=== PATIENT | female | born 1945 | race Caucasian/White ===

== ENCOUNTER 2018-02-24 10:03 | Observation (INO) | payer MEDICARE, OTHER ==
[~2018-02-24] VITALS: Ht 157.5 cm; Wt 94.0 kg
[~2018-02-24 10:03] MED LIST: ACTOS45 MG PO; ALLER-EASE180 MG PO; ASPIR 8181 MG PO; CAL MAG ZINC +1 EACH PO; COUMADIN4 MG PO; GLIPIZIDE ER10 MG PO; GLIPIZIDE XL10 MG PO; GLIPIZIDE10 MG PO; GLUCOPHAGE500 MG PO; GLUCOSAMINE &1 EAC1 PO; LANTUS SOL100 UNIT/1 INJ; LANTUS SOL100 UNIT/1 SUB-Q; LISINOPRIL-HCT1 EACH PO; MEDROL4 MG PO; OCTREOTIDE100 MCG/2 IJ; PIOGLITAZONE HC15 MG PO; PRAVACHOL40 MG PO; SOMATULINE120 MG/0.5 SUB-Q; TRAMADOL HCL50 MG PO; TYLENOL EXTRA500 MG PO; VITAMIN D5000 UNIT PO; WARFARIN SODIUM5 MG PO
--- NOTE | 2018-02-24 15:24 | NUR ---
SPOKE WITH DR. LEDBETTER VIA TELEPHONE TO SONA KATZ. CLARRIFIED THAT SHE DID NOT WANT TO REPEAT THE LACTIC ACID LAB, AND ACKNOWLEGED THAT SHE WAS AWARE OF PT'S ELEVATED LACTIV ACID LEVEL OF 3.5. ALSO CLARRIFIED ORDERS FOR LR 1,000 ML BOLUS THAT WAS ORDERED TWICE, THEN LR AT 100 CC/HR. DR. LEDBETTER ORDERED THAT ONE LITER LR BOLUS BE GIVEN, NOT TWO LITERS.
[2018-02-24] MEDS ORDERED: SOMATULINE120 MG/0.5 SUB-Q (17:24)
--- NOTE | 2018-02-24 17:52 | NUR ---
PATIENT SITTING UP IN BED WITH EYES CLOSED. PATIENT'S DAUGHTER IN ROOM. CALL BUTTON IN REACH. NO NEEDS AT THIS TIME.
--- NOTE | 2018-02-24 17:54 | NUR ---
PATIENT ADMITTED FROM EMERGENCY DEPARTMENT WITH DEHYDRATION, HYPOMAGNESIA, UPPER RESPIRATORY VIRUS. PATIENT IS INDEPENDENT AT HOME, PATIENT REQUIRES 1 PERSON STANDBY ASSIST DUE TO COMPLAINTS OF DIZZINESS AND EPISODE OF HYPOTENSION EARLIER. PATIENT AMBULATES TO RESTROOM. PATIENT ALSO WITH ALL OVER WEAKNESS THE LAST WEEK. PATIENT WITH HISTORY OF LIVER/COLON TUMOR REMOVAL/CANCER. PATIENT REPORTS INJECTION, NOT CHEMO GIVEN X [facility], WITH NEXT INJECTION DUE TOMORROW 02/25/18. PATIENT HAS CHRONIC ABDOMINAL PAIN WITH INCREASE IN PAIN DUE TO COUGHING PER PATIENT. PATIENT ALSO REPORTS CHRONIC DIARRHEA. PATIENT VOIDED 300ML AT TIME OF ADMITTANCE. PATIENT RECEIVED 2LITER LR AND NOW ON CONTINUOUS LR AT 100ML/HR. PATIENT ALSO RECEIVING IV REPLACEMENT MAGNESIUM DUE TO MAGNESIUM AT 1.5. PATIENT ALSO RECEIVING SCHEDULED MEDICATIONS OF ROBITUSSIN, FLONASE, PSEUDOPHEDRINE. PATIENT WITH DECREASE APPETITE AND ONLY COMPLETED 25% OF DINNER. PATIENT ALSO WITH DM TYPE II AND SLIDING INSULIN SCALE. UNKNOWN PLAN AT THIS TIME.
--- NOTE | 2018-02-24 18:20 | NUR ---
PATIENT WITH DECREASE APPETITE, FINISHED 25% OF DINNER.
--- NOTE | 2018-02-24 19:00 | NUR ---
BEDSIDE REPORT RECEIVED FROM RN LAURO. PT AWAKE, ON RA, LYING IN BED, LR INFUSING WNL RIGHT AC. CALL LIGHT IN REACH, TRAY TABLE REMOVED FROM ROOM. NO REQUESTS AT THIS TIME. FAMILY IN ROOM.
--- NOTE | 2018-02-24 21:30 | NUR ---
PT AWAKE, LYING IN BED, SON IN ROOM. PRN TYLENOL ADMINISTERED FOR CHRONIC ABD PAIN. PT COUGHING, CLEAR PRODUCTIVE THIN SPUTUM. BOWEL TONES HYPOACTIVE X 4, ABD SOFT, PAIN IN LUQ. HR IRREGULAR RHYTHM, ON TELE 6. LUNGS CLEAR BILATEALLY UPPER LOBES, FINE CRACKLES NOTED BILATERALLY LOWER LOBES. CBG 150. SBA TO RESTROOM FOR VOID AND LOOSE BM. PRN COUGH MEDICATION ADMINISTERED. PT DENIES NAUSEA. CALL LIGHT IN REACH, LIGHTS OFF IN ROOM.
--- NOTE | 2018-02-24 22:16 | EKG ---
[facility] [address] [facility] [place], [place] [address] Signed Atrial fibrillation Low voltage QRS Cannot rule out Anterior infarct (cited on or before 22-NOV-2016) Abnormal ECG When compared with ECG of 22-NOV-2016 15:49, Atrial fibrillation has replaced Sinus rhythm Confirmed by DANITAZ LEDBETTER MD ([id number]) on 02/24/2018 10:15:50 PM Electronically Signed By: DANITZA LEDBETTER MD 02/24/18 2216 PATIENT NAME: CLOVER MARTINEZ Electrocardiogram DATE OF : 41 PHYSICIAN: DANITZA LEDBETTER MD REPORT #: [id number] REPORT IS CONFIDENTIAL AND NOT TO BE RELEASED WITHOUT AUTHORIZATION
--- NOTE | 2018-02-25 00:13 | NUR ---
CHECKED ON PT, APPEARS TO BE SLEEPING, EYES CLOSED, VISIBLE CHEST RISE. IVF INFUSING.
--- NOTE | 2018-02-25 01:08 | NUR ---
DISTAL OCCLUSION WITH IV PUMP, PT AWAKE, SBA TO RESTROOM FOR LOOSE BM AND 400 ML VOID, SBA BACK TO BED. IVF INFUSING WNL. CALL LIGHT IN REACH, LIGHTS OFF IN ROOM. HR 79-85 ON TELE 6.
--- NOTE | 2018-02-25 02:44 | NUR ---
IV PUMP CONTINUES TO ALARM, IV NOT PATENT, LINE D/C'D, NEW IV STARTED IN RIGHT WRIST WNL PT CYNTHIA. WELL. LUNGS CLEAR IN UPPER LOBES WITH FINE CRACKLES BILATERALLY LOWER EXTREMITIES. OCCASIONAL COUGH, DRY AT THIS TIME. HR IRREGULAR, HR 74-78. BOWEL TONES ACTIVE X 4, WARM PACK ON ABD. ABD SOFT, PT DENIES NAUSEA. WILL CONTINUE TO MONITOR. CALL LIGHT IN REACH, LIGHTS OFF IN ROOM.
--- NOTE | 2018-02-25 04:41 | NUR ---
CHECKED ON PT, PT AWAKE, ON IPAD, SBA TO RESTROOM FOR VOID, BACK TO BED. DENIES ANY PAIN AT THIS TIME. IVF INFUSING WNL. CALL LIGHT IN REACH, NO ADDL REQUESTS, PT DRINKING WATER.
--- NOTE | 2018-02-25 06:08 | NUR ---
PHONE CALL FROM PT'S DAUGHTER STEW, UPDATED ON PT'S NIGHT.
--- NOTE | 2018-02-25 06:19 | NUR ---
HR IRREGULAR, ON TELE 6. PRODUCTIVE COUGH CLEAR THIN SPUTUM, PRN COUGH MEDICATIONS. NEW IV SITE RIGHT WRIST, IVF INFUSING WNL. CHRONIC PAIN CONTROLLED WITH PRN TYLENOL, HEAT TO ABD. BOWEL TONES ACTIVE X 4, ABD SOFT. DENIES NAUSEA. SBA TO RESTROOM, LOOSE STOOL, QS VOIDS.
--- NOTE | 2018-02-25 06:34 | NUR ---
IN PT ROOM, PT COUGHING, PRN COUGH MEDICATION ADMINISTERED AT THIS TIME. NO ADDL REQUESTS. CALL LIGHT IN REACH, IVF INFUSING.
--- NOTE | 2018-02-25 07:20 | NUR ---
PT IN BED, AWAKE, ALERT. COUGHING, HAD PRN TESSLON RADHA AT 0633. 22 G IV TO RW WNL, LR INFUSING AT 100CC/HR. PERSONAL SUPPLIES AND CALL BUTTON IN REACH.
--- NOTE | 2018-02-25 08:00 | NUR ---
PATIENT UP TO BATHROOM AND BACK TO CHAIR WITH STAND BY ASSIST. PATIENT STATES THAT SHE WOULD LIKE TO SHOWER AFTER BREAKFAST. HANDS AND FACE WASHED. CALL BUTTON IN REACH. BREAKFAST TRAY SET UP. NO OTHER NEEDS AT THIS TIME.
--- NOTE | 2018-02-25 08:13 | NUR ---
RT in room with pt giving education on cough and respiratory care.
--- NOTE | 2018-02-25 09:00 | NUR ---
PATIENT UP TO SHOWER WITH STAND BY ASSIST.LINENS CHANGED. ORAL CARE DONE.
--- NOTE | 2018-02-25 10:00 | NUR ---
PATIENT BACK TO BED WITH WARM BLANKET. CALL BUTTON IN REACH. NO OTHER NEEDS AT THIS TIME. IN ROOM TO SEE PATIENT.
--- NOTE | 2018-02-25 10:27 | NUR ---
PT RESTING IN BED. DENIES NEEDS AT THIS TIME. CALL LIGHT WITHIN REACH.
[2018-02-25] MEDS ORDERED: ALPHAGAN P5 M1 OU (11:26)
[2018-02-25] MEDS ORDERED: COLCRYS0.6 MG PO (11:27)
[2018-02-25] MEDS ORDERED: TIMOLOL MALEATE5 M2 OU (11:29)
--- NOTE | 2018-02-25 11:31 | NUR ---
PT RESTING IN BED WITH DAUGHTER AT BEDSIDE. STATED, "IM FEELING MUCH BETTER." BLOOD SUGAR CHECKED. NO INSULIN NEEDED.
[2018-02-25] MEDS ORDERED: FLONASE ALLERG9.9 ML NAS (11:38)
--- NOTE | 2018-02-25 11:39 | NUR ---
MED REC COMPLETE
--- NOTE | 2018-02-25 12:57 | NUR ---
PT UP AND AMBULATING IN HALLWAY. TOLERATED ACTIVITY WELL. BACK IN ROOM WITH DAUGHTER.
[2018-02-25] MEDS ORDERED: NYSTATIN15 GM TOP (13:24)
--- NOTE | 2018-02-25 13:36 | NUR ---
IN ROOM TO DISCUSS DISCHARGE. PT VERBALIZED UNDERSTANDING.
--- NOTE | 2018-02-25 13:55 | NUR ---
IN ROOM TO GIVE DISCHARGE INSTRUCTIONS ON MEDICATION, FOLLOW-UP, ACTIVITY, DIET, AND WHEN TO CONTACT THE MD. PT VERBALIZED UNDERSTANDING. WILL DISCHARGE HOME WITH DAUGHTER.
[2018-03-25] MEDS ORDERED: MAGNESIUM CITR100 MG PO (11:17)
== END 2018-02-25 14:05 | disposition home or self-care (01) ==
LOC: ED 10:03 → MS 10:06
PROVIDERS: ADMIT Internal Medicine
DX: E86.0 Dehydration (principal); K52.9 Noninfective gastroenteritis and colitis, unspecified; J01.10 Acute frontal sinusitis, unspecified; B97.89 Other viral agents as the cause of diseases classified elsewhere; I48.91 Unspecified atrial fibrillation; C7A.00 Malignant carcinoid tumor of unspecified site; C7B.02 Secondary carcinoid tumors of liver; E11.9 Type 2 diabetes mellitus without complications; I10 Essential (primary) hypertension; M10.9 Gout, unspecified; E78.00 Pure hypercholesterolemia, unspecified; Z86.711 Personal history of pulmonary embolism; Z79.84 Long term (current) use of oral hypoglycemic drugs; Z79.82 Long term (current) use of aspirin; Z79.899 Other long term (current) drug therapy; Z88.5 Allergy status to narcotic agent; Z88.2 Allergy status to sulfonamides
CPT/HCPCS: 36415; 51701; 71046; 80053; 81001; 83605; 83690; 83735; 84484; 85025; 85379; 93005; 93010; 93306; 94640; 94667; 96361; 96365; 96372; 96376; 99285; G0378; J1650; J3475; J7120

== ENCOUNTER 2020-01-09 17:26 | Emergency (ER) | payer MEDICARE, OTHER ==
[~2020-01-09] VITALS: Ht 157.5 cm; Wt 89.4 kg
[~2020-01-09 17:26] MED LIST changes: +ALPHAGAN P5 M1 OU; +COLCRYS0.6 MG PO; +CORICIDIN COLD1 EACH PO; +FLONASE ALLERG9.9 ML NAS; +MAGNESIUM CITR100 MG PO; +MECLIZINE HCL25 MG PO; +NYSTATIN15 GM TOP; +TIMOLOL MALEATE5 M2 OU; +TRANSDERM-SCOP1 EACH TD; +TURMERIC COMPL1 EACH PO; +ZITHROMAX250 MG PO
--- OUTSIDE RECORDS SUMMARY | 2020-01-09 17:28 | XMS ---
PreManage Notification: CLOVER MARTINEZ Security Manager Ct Events No recent Security Events currently on file CRITERIA MET - Group Notification CARE PROVIDERS There are no care providers on record at this time. Zainab has no Care Guidelines for this patient. [place] VISIT COUNT (12 MO.) [address] [facility] [place] 1 RODGER Quiñonez TOTAL 2 NOTE: Visits indicate total known visits. ED/[facility] VISIT TRACKING (12 MO.) 01/09/2020 17:26 RODGER Quiñonez [place] TYPE: Emergency COMPLAINT: - FELL, LACERATION HEAD 11/27/2019 15:[address] [facility] [place] TYPE: Emergency DIAGNOSES: - Benign paroxysmal vertigo, unspecified ear - Emesis - Dizziness INPATIENT VISIT TRACKING (12 MO.) No inpatient visits to display in this time frame [id number]
== END 2020-01-09 19:29 | disposition home or self-care (01) ==
LOC: ED 17:26
DX: S06.9X0A Unspecified intracranial injury without loss of consciousness, initial encounter (principal); S01.81XA Laceration without foreign body of other part of head, initial encounter; E11.9 Type 2 diabetes mellitus without complications; I10 Essential (primary) hypertension; E78.00 Pure hypercholesterolemia, unspecified; Z79.899 Other long term (current) drug therapy; X58.XXXA Exposure to other specified factors, initial encounter
CPT/HCPCS: 12013; 70450; 90471; 90715; 99283-25

== ENCOUNTER 2021-11-14 11:10 | Inpatient (IN) | payer MEDICARE, OTHER ==
[~2021-11-14] VITALS: Ht 157.5 cm; Wt 92.0 kg
--- NOTE | 2021-11-14 00:14 | NUR ---
PT IS RESTING WITH EYES CLOSED RR IS EVEN AND UNLABORED. CALL LIGHT IS CLOSE.
[~2021-11-14 11:10] MED LIST changes: +METOPROLOL SUCC25 MG PO; +WARFARIN SODIUM4 MG PO
--- OUTSIDE RECORDS SUMMARY | 2021-11-14 11:18 | XMS ---
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 [place] VISIT COUNT (12 MO.) 1 RODGER Quiñonez TOTAL 1 NOTE: Visits indicate total known visits. ED/[facility] VISIT TRACKING (12 MO.) 11/14/2021 11:11 [facility] [place] TYPE: Emergency COMPLAINT: - DIZZINESS, NAUSEA, SOB, UNABLE TO WALK FAR INPATIENT VISIT TRACKING (12 MO.) No inpatient visits to display in this time frame [id number]
[2021-11-14] MEDS ORDERED: AMIODARONE HCL200 MG PO (11:32)
[2021-11-14] MEDS ORDERED: ELIQUIS5 MG PO (11:33)
[2021-11-14] MEDS ORDERED: EUTHYROX112 MCG PO (11:33)
[2021-11-14] MEDS ORDERED: LOSARTAN-HCTZ1 EAC1 PO (11:33)
--- NOTE | 2021-11-14 15:15 | NUR ---
PT ARRIVED TO FLOOR AT THIS TIME. PT ABLE TO PULLED OVER FROM STRETCHER TO BED WITH STAFF. PT DOES HAVE RASH/ SHINGLES NOTED ON HER RIGHT SIDE- UNDER PTS LEFT ARMPIT HAS SMALL NOTED RASH. THIS RN PROVIDED PT WITH TYLENOL FOR PAIN
--- NOTE | 2021-11-14 18:30 | NUR ---
THIS RN IN PTS ROOM TO CHECK ON PT. PT STATES THAT SHE IS DOING WELL AND ABLE TO EAT SOME FOOD. PT STATES THAT HER PAIN IS BETTER AFTER TYLENOL. NO OTHER NEEDS AT THIS TIME
--- NOTE | 2021-11-14 19:30 | NUR ---
RECEIVED REPORT, PT IS AWAKE IN BED. HER DAUGHTER JUST LEFT FOR THE NIGHT AND SHE DENIES NEEDS. CALL LIGHT IS CLOSE.
--- NOTE | 2021-11-14 22:09 | NUR ---
IN ROOM TO ADMINISTER MEDICATION AND ASSESS PT. BG CHECK AND DOES NOT REQUIRE INSULIN. 1PA TO RESTROOM AND BACK TO BED. PT HAD ANOTHER LOOSE BM AND URINE THAT MISSED THE HAT ALONG WITH 100MLS IN THE HAT. PT DENIES PAIN AT THIS TIME. NO SOB OR NAUSEA. VS WNL. PT PROVIDED FRESH ICEWATER AND DENIES FURTHER NEEDS. CALL LIGHT IS CLOSE.
--- NOTE | 2021-11-15 01:57 | NUR ---
PT IS RESTING WITH EYES CLOSED, RR IS EVEN AND UNLABORED. CALL LIGHT IS CLOSE AND IV IS INFUSING FINE.
--- NOTE | 2021-11-15 02:45 | NUR ---
WOKE PT TO TAKE VITAL SIGNS AND ASSISTED PT TO RESTROOM AND BACK TO BED. SHE REPORTS RASHES ON BACK ITCHING/BURNING BUT DENIES PAIN. NO BLISTERS OR OPEN AREAS OF SKIN. PT VOIDED 300MLS. SHE REPORTS SOME ABD TENDERNESS WITH PRESSURE WHICH SHE STATES IS HER BASELINE. PT ALSO HAS INTERMITENT EXP WHEEZES WHILE SLEEPING BUT WAS NOT AUSCULTATED WHILE AWAKE. SHE REPORTS SHE DOES THIS AT BASELINE WELL. PT HAS SOME SOB WITH EXERTION AT BASELINE. PT DENIES FURTHER NEEDS AT THIS TIME. CALL LIGHT IS CLOSE.
--- NOTE | 2021-11-15 04:52 | NUR ---
PT IS RESTING WITH EYES CLOSED, RR IS EVEN AND UNLABORED. CALL LIGHT IS CLOSE AND IV IS INFUSING FINE.
--- NOTE | 2021-11-15 06:35 | NUR ---
IN ROOM TO HELP PT TO RESTROOM AND BACK TO BED. PT REPORTS HEADACHE 7/10 ADMINISTERED TYLENOL AND THYROID MEDICATION. PT'S COUGH IS MORE PRODUCTIVE THIS MORNING. IV IS INFUSING FINE AND PT DENIES FURTHER NEEDS. CALL LIGHT IS CLOSE.
--- NOTE | 2021-11-15 08:18 | NUR ---
PT IN BED STATING THAT SHE SLEPT OK, BG WAS TAKEN, AND PT UP TO CHAIR IN PREPARATION FOR BREAKFAST. NO FURTHER NEEDS AT THIS TIME.
--- NOTE | 2021-11-15 09:23 | NUR ---
VS WNL. PT UP IN CHAIR EATING BREAKFAST. NO NEEDS AT THIS TIME.
--- NOTE | 2021-11-15 10:21 | NUR ---
Patient sitting up in chair eating breakfast, no distress. IV site patent, fluids running. Patient reports her rash on back has intermittent nerve pain, tolerable at this time. Rash is on right upper back; red, open to room air, no notable blistering at this time. No current needs. Personal supplies and call light within reach.
--- NOTE | 2021-11-15 10:40 | NUR ---
Spoke with Daniella, she states she lives in a 1 story home. Her son lives with her. Multiple family members assist her. She drives and does house hold chores and shopping. No DME. Pt does have a productive cough throughout our visit. States she was very dehydrated as she could not t or drink. Plans on dc to home with son when she is cleared medically She states her spouse lives in [facility].
[2021-11-15] MEDS ORDERED: [UNRECOGNIZED DRUG - OTHER] PO (13:06)
--- NOTE | 2021-11-15 13:06 | NUR ---
MED REC COMPLETE
--- NOTE | 2021-11-15 15:34 | NUR ---
Assisted patient to restroom then back to bed. Patient reports mild pain to right upper back, tylenol in use. IV site patent. Patient denies needs. Patient's daughter at bedside. No current needs.
--- NOTE | 2021-11-15 18:36 | EKG ---
[facility] [address] [facility] [place] [address] Signed Atrial fibrillation Low voltage QRS Septal infarct (cited on or before 22-NOV-2016) Abnormal ECG When compared with ECG of 24-FEB-2018 10:37, Current undetermined rhythm precludes rhythm comparison, needs review Questionable change in initial forces of Anterior leads Nonspecific T wave abnormality now evident in Lateral leads Confirmed by POLI YOST DO ([id number]) on 11/15/2021 6:36:25 PM Electronically Signed By: POLI YOST DO 11/15/21 1836 PATIENT NAME: CLOVER MARTINEZ Electrocardiogram DATE OF : 41 PHYSICIAN: POLI YOST DO REPORT #: [id number] REPORT IS CONFIDENTIAL AND NOT TO BE RELEASED WITHOUT AUTHORIZATION
--- NOTE | 2021-11-15 18:36 | EKG ---
[facility] [address] [facility] [place], [place] [address] Signed Atrial fibrillation Low voltage QRS Nonspecific ST and T wave abnormality Abnormal ECG When compared with ECG of 14-NOV-2021 11:58, (Unconfirmed) Previous ECG has undetermined rhythm, needs review Confirmed by POLI YOST DO ([id number]) on 11/15/2021 6:36:32 PM Electronically Signed By: POLI YOST DO 11/15/21 1836 PATIENT NAME: CLOVER MARTINEZ Electrocardiogram DATE OF : 41 PHYSICIAN: POLI YOST DO REPORT #: [id number] REPORT IS CONFIDENTIAL AND NOT TO BE RELEASED WITHOUT AUTHORIZATION
--- NOTE | 2021-11-15 19:27 | NUR ---
RECEIVED REPORT, PT IS UP TO THE RESTROOM WITH DAUGHTER AT THIS TIME. THEY DENY NEEDS AT THIS TIME.
--- NOTE | 2021-11-15 21:50 | NUR ---
IN ROOM TO ASSESS PT AND ADMINISTER MEDICATIONS. ASSISTED PT TO RESTROOM AND BACK TO BED. ALSO ADMINISTERED TYLENOL FOR HEADACHE 01/13. PT REPORTS WEAKNESS IS DECREASING AND THAT SHE DID WELL WITH PT TODAY. RASHES ON PT'S BACK ARE UNCHANGED, L SIDE IS SLIGHTLY ENROLLMENT COUNSELOR IN COLOR. IV IS INFUSING FINE. 1 UNIT S/S INSULIN GIVEN FOR 150 BLOOD GLUCOSE. PT DENIES FURTHER NEEDS AT THIS TIME. CALL LIGHT IS CLOSE.
--- NOTE | 2021-11-15 23:29 | NUR ---
PT CALLED STATING HER IV IS LEAKING AND HER PILLOW IS WET. UPON ENTERING ROOM PT'S ARM IS DRY AND BEDDING IS DRY. PT STATES HER PILLOW IS WET BUT THE CASE HAS PARTILY COME OFF AND HER HEAD WAS ON THE COLD PLASTIC. HELPED PT TO FIX PILLOW CASE AND SHE DENIES FURTHER NEEDS. CALL LIGHT IS CLOSE.
--- NOTE | 2021-11-16 00:50 | NUR ---
IN TO UNPLUG IV PUMP FOR PT TO AMBULATE TO BATHROOM, PT BACK TO BED, NO FURTHER NEEDS
--- NOTE | 2021-11-16 02:08 | NUR ---
PT IS RESTING WITH EYES CLOSED, RR IS EVEN AND UNLABORED. CALL LIGHT IS CLOSE AND IV IS INFUSING FINE.
--- NOTE | 2021-11-16 03:22 | NUR ---
PT CALLED AFTER HAVING 50MLS OF EMESIS. OFFERED PT ZOFRAN AND SHE DENIES NAUSEA MEDS AT THIS TIME. PT STATES SHE WAS COUGHING AND THICK MUCAS CAUSED HER TO GAG. NEW BAG OF LR INFUSING AT THIS TIME PER ORDERS. PT DENIES FURTHER NEEDS AT THIS TIME. CALL LIGHT IS CLOSE.
--- NOTE | 2021-11-16 05:34 | NUR ---
IN ROOM TO ADMININSTER THYROID MEDICATION AND TAKE PT TO RESTROOM. SHE DENIES NEEDS AT THIS TIME. LAB IS IN ROOM GET GET LAB DRAW. CALL LIGHT IS CLOSE.
--- NOTE | 2021-11-16 07:46 | NUR ---
Patient resting in bed, no distress. Patient's respirations are even and non labored. Personal supplies and call light within reach.
--- NOTE | 2021-11-16 09:53 | NUR ---
Patient awake in chair, no distress. Patient reports she is feeling much better. Patient denies sob or any other distress. IV site patent. Vital signs stable, afebrile. No current needs.
--- NOTE | 2021-11-16 10:52 | NUR ---
Verbal order obtained from Dr. Whittington for Tessalon perles Q8 hours as needed for cough.
--- NOTE | 2021-11-16 10:53 | NUR ---
Verbal order obtained from Dr. Whittington for tessalon perles 100mg po q8hr as needed for cough.
--- NOTE | 2021-11-16 11:08 | NUR ---
Tessalon perles 100mg po admin for cough.
== END 2021-11-16 13:11 | disposition home or self-care (01) | DRG 178 ==
LOC: ED 11:10 → MS 14:04
PROVIDERS: ADMIT Student in an Organized Health Care Education/Training Program; ATTEND Student in an Organized Health Care Education/Training Program
DX: U07.1 COVID-19 (principal); N17.9 Acute kidney failure, unspecified; E34.0 Carcinoid syndrome; E86.0 Dehydration; E83.42 Hypomagnesemia; E11.9 Type 2 diabetes mellitus without complications; E03.9 Hypothyroidism, unspecified; I10 Essential (primary) hypertension; I48.91 Unspecified atrial fibrillation; M10.9 Gout, unspecified; E78.5 Hyperlipidemia, unspecified; Z86.711 Personal history of pulmonary embolism; Z90.710 Acquired absence of both cervix and uterus; Z90.49 Acquired absence of other specified parts of digestive tract; Z98.890 Other specified postprocedural states; Z88.2 Allergy status to sulfonamides; Z88.5 Allergy status to narcotic agent; Z79.82 Long term (current) use of aspirin; Z79.01 Long term (current) use of anticoagulants; Z79.899 Other long term (current) drug therapy; Z79.84 Long term (current) use of oral hypoglycemic drugs
CPT/HCPCS: 36415; 71045; 80048; 80053; 81001; 83735; 84484; 85025; 93005; 93010; 97162; A9270; C9803; J1815; J3475; J7030; J7121; U0003

== ENCOUNTER 2022-06-24 08:26 | Emergency (ER) | payer MEDICARE, OTHER ==
[~2022-06-24] VITALS: Ht 157.5 cm; Wt 90.7 kg
[~2022-06-24 08:26] MED LIST changes: +AMIODARONE HCL200 MG PO; +BENZONATATE200 MG PO; +COZAAR25 MG PO; +ELIQUIS5 MG PO; +EUTHYROX112 MCG PO; +FUROSEMIDE20 MG PO; +LOSARTAN-HCTZ1 EAC1 PO; +POTASSIUM CHLO10 MEQ PO; +TORSEMIDE20 MG PO; +[UNRECOGNIZED DRUG - OTHER] PO; +[UNRECOGNIZED DRUG - OTHER] TOP
--- OUTSIDE RECORDS SUMMARY | 2022-06-24 08:34 | XMS ---
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 [place] VISIT COUNT (12 MO.) 3 RODGER Quiñonez TOTAL 3 NOTE: Visits indicate total known visits. 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 of oral hypoglycemic drugs - Allergy status to narcotic agent - Other chcf (current) drug therapy - Syncope and collapse - Contact with and (suspected) exposure to COVID-19 - Essential (primary) hypertension - Localized edema - Personal history of pulmonary embolism - pipeline welder (current) use of anticoagulants - Type 2 diabetes mellitus without complications - Allergy status to sulfonamides 11/14/2021 11:11 [facility] [place] TYPE: Emergency COMPLAINT: - DIZZINESS, NAUSEA, SOB, UNABLE TO WALK FAR INPATIENT VISIT TRACKING (12 MO.) 11/14/2021 14:04 [facility] [place] TYPE: Medical Surgical COMPLAINT: - COVID CAITLNY DIAGNOSES: - Hypothyroidism, unspecified - Acquired absence of other specified parts of digestive tract - pipeline welder (current) use of aspirin - Essential (primary) hypertension - Hyperlipidemia, unspecified - Allergy status to narcotic agent - Essential (primary) hypertension - Other ch[facility] (current) drug therapy - skilled nursing (current) use of oral hypoglycemic drugs - pipeline welder (current) use of aspirin - Type 2 diabetes mellitus without complications - Dehydration - Hypomagnesemia - Gout, unspecified - pipeline welder (current) use of anticoagulants - Unspecified atrial fibrillation - Personal history of other endocrine, nutritional and metabolic disease - Other specified postprocedural states - Type 2 diabetes mellitus without complications - Acute kidney failure, unspecified - Allergy status to narcotic agent - Acute kidney failure, unspecified - Carcinoid syndrome - Gout, unspecified - Allergy status to sulfonamides - Acquired absence of other specified parts of digestive tract - Unspecified atrial fibrillation - pipeline welder (current) use of anticoagulants - Acquired absence of both cervix and uterus - Hyperlipidemia, unspecified - COVID-19 - Other signs and displays sales representative (current) drug therapy - Personal history of pulmonary embolism - Hypomagnesemia - Acquired absence of both cervix and uterus - Personal history of pulmonary embolism - Hypothyroidism, unspecified - Carcinoid syndrome - Other specified postprocedural states - Dehydration - pipeline welder (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
[2022-06-24] MEDS ORDERED: ZYRTEC10 M3 PO (08:52)
[2022-06-24] MEDS ORDERED: HYDRALAZINE HCL25 MG PO (08:53)
[2022-06-24] MEDS ORDERED: LANREOTIDE120 MG/0.5 SUB-Q (08:53)
--- NOTE | 2022-06-24 18:02 | EKG ---
[facility] [address] [facility] [place] [address] Signed Atrial fibrillation Nonspecific T wave abnormality Abnormal ECG When compared with ECG of 27-MAR-2022 10:42, Nonspecific T wave abnormality, worse in Inferior leads Nonspecific T wave abnormality now evident in Anterolateral leads QT has shortened Confirmed by POOL DC MD ([id number]) on 06/24/2022 6:02:17 PM Electronically Signed By: POOL DC MD 06/24/221801 PATIENT NAME: CLOVER MARTINEZ Electrocardiogram DATE OF : 41 PHYSICIAN: POOL DC MD REPORT #: [id number] REPORT IS CONFIDENTIAL AND NOT TO BE RELEASED WITHOUT AUTHORIZATION
== END 2022-06-24 12:49 | disposition home or self-care (01) ==
LOC: ED 08:26
DX: R53.1 Weakness (principal); Z20.822 Contact with and (suspected) exposure to COVID-19; E11.9 Type 2 diabetes mellitus without complications; I10 Essential (primary) hypertension; M10.9 Gout, unspecified; E78.00 Pure hypercholesterolemia, unspecified; I48.91 Unspecified atrial fibrillation; Z88.2 Allergy status to sulfonamides; Z88.5 Allergy status to narcotic agent; Z79.899 Other long term (current) drug therapy
CPT/HCPCS: 36415; 71045; 80053; 81001; 83735; 84484; 85025; 87502; 93005; 93010; 99285-25; C9803; U0003

== ENCOUNTER 2022-07-24 15:48 | Emergency (ER) | payer MEDICARE, OTHER ==
[~2022-07-24] VITALS: Ht 157.5 cm; Wt 90.7 kg
[~2022-07-24 15:48] MED LIST changes: +HYDRALAZINE HCL25 MG PO; +LANREOTIDE120 MG/0.5 SUB-Q; +ZYRTEC10 M3 PO
--- OUTSIDE RECORDS SUMMARY | 2022-07-24 15:56 | XMS ---
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 - 2 Visits in 30 Days CARE PROVIDERS JARRETT HICKS [facility] 01/10/2020-Current [facility] PHONE: Unknown Zainab has no Care Guidelines for this patient. [place] VISIT COUNT (12 MO.) [address] [place] [address] TOTAL 4 NOTE: Visits indicate total known visits. ED/UCC VISIT TRACKING (12 MO.) 07/24/2022 15:49 [facility] [place] TYPE: Emergency COMPLAINT: - DIZZINESS 06/24/2022 08:27 [facility] [place] TYPE: Emergency COMPLAINT: - DIZZY, WEAK DIAGNOSES: - Other senior living (current) drug therapy - Contact with and (suspected) exposure to COVID-19 - Type 2 diabetes mellitus without complications - Unspecified atrial fibrillation - Allergy status to narcotic agent - Essential (primary) hypertension - Gout, unspecified - Allergy status to sulfonamides - Pure hypercholesterolemia, unspecified - Weakness 03/27/2022 10:32 [facility] [place] TYPE: Emergency COMPLAINT: - HEART ISSUE DIAGNOSES: - Personal history of pulmonary embolism - terminal manager (current) use of anticoagulants - Type 2 diabetes mellitus without complications - Allergy status to sulfonamides - Unspecified atrial fibrillation - jail (current) use of oral hypoglycemic drugs - Allergy status to narcotic agent - Other senior living (current) drug therapy - Syncope and collapse - Contact with and (suspected) exposure to COVID-19 - Essential (primary) hypertension - Localized edema 11/14/2021 11:11 [facility] [place] TYPE: Emergency COMPLAINT: - DIZZINESS, NAUSEA, SOB, UNABLE TO WALK FAR INPATIENT VISIT TRACKING (12 MO.) 11/14/2021 14:04 [facility] [place] TYPE: Medical Surgical COMPLAINT: - COVID CAITLYN DIAGNOSES: - terminal manager (current) use of anticoagulants - Acquired absence of both cervix and uterus - Other senior living (current) drug therapy - Hyperlipidemia, unspecified - COVID-19 - Acquired absence of both cervix and uterus - Personal history of pulmonary embolism - Hypomagnesemia - Hypothyroidism, unspecified - Personal history of pulmonary embolism - Dehydration - Carcinoid syndrome - Other specified postprocedural states - terminal manager (current) use of oral hypoglycemic drugs - Allergy status to sulfonamides - jail (current) use of aspirin - Hypothyroidism, unspecified - Acquired absence of other specified parts of digestive tract - Essential (primary) hypertension - Hyperlipidemia, unspecified - Other senior living (current) drug therapy - Allergy status to narcotic agent - Essential (primary) hypertension - Type 2 diabetes mellitus without complications - jail (current) use of oral hypoglycemic drugs - jail (current) use of aspirin - Gout, unspecified - Dehydration - Hypomagnesemia - Personal history of other endocrine, nutritional and metabolic disease - jail (current) use of anticoagulants - Unspecified atrial fibrillation - Other specified postprocedural states - Type 2 diabetes mellitus without complications - Acute kidney failure, unspecified - Acute kidney failure, unspecified - Allergy status to narcotic agent - Carcinoid syndrome - Gout, unspecified - Unspecified atrial fibrillation - Allergy status to sulfonamides - Acquired absence of other specified parts of digestive tract [id number]
--- NOTE | 2022-07-25 12:48 | EKG ---
[facility] [address] [facility] [place] [address] Signed Atrial fibrillation with slow ventricular response Possible Anterior infarct , age undetermined Abnormal ECG When compared with ECG of 24-JUN-2022 09:08, No significant change was found Confirmed by POOL DC MD ([id number]) on 07/25/2022 12:48:09 PM Electronically Signed By: POOL DC MD 07/25/22 1248 PATIENT NAME: CLOVER MARTINEZ Electrocardiogram DATE OF : 41 PHYSICIAN: POOL DC MD REPORT #: [id number] REPORT IS CONFIDENTIAL AND NOT TO BE RELEASED WITHOUT AUTHORIZATION
== END 2022-07-24 22:05 | disposition home or self-care (01) ==
LOC: ED 15:48
DX: E86.0 Dehydration (principal); D3A.019 Benign carcinoid tumor of the small intestine, unspecified portion; I12.9 Hypertensive chronic kidney disease with stage 1 through stage 4 chronic kidney disease, or unspecified chronic kidney disease; N18.9 Chronic kidney disease, unspecified; E11.22 Type 2 diabetes mellitus with diabetic chronic kidney disease; Z88.2 Allergy status to sulfonamides; Z88.5 Allergy status to narcotic agent; Z79.899 Other long term (current) drug therapy; Z79.890 Hormone replacement therapy; Z20.822 Contact with and (suspected) exposure to COVID-19
CPT/HCPCS: 36415; 70450; 71045; 71250; 74176; 80053; 81001; 82140; 83690; 83880; 84484; 85025; 87502; 93005; 93010; A9270; C9803; J2405; J7040; U0003

== ENCOUNTER 2022-09-15 22:29 | Inpatient (IN) | payer MEDICARE, OTHER ==
[~2022-09-15] VITALS: Ht 157.5 cm; Wt 85.1 kg
--- OUTSIDE RECORDS SUMMARY | 2022-09-15 22:38 | XMS ---
PreManage Notification: CLOVER MARTINEZ Security Journal Box Inspector Events No recent Security Events currently on file CRITERIA MET - Group Notification CARE PROVIDERS JARRETT HICKS [facility] 01/10/2020-Current PHONE: Unknown KATHY SANDOVAL [facility] Current PHONE: Unknown Zainab has no Care Guidelines for this patient. [place] VISIT COUNT (12 MO.) Brown Quiñonez TOTAL 5 NOTE: Visits indicate total known visits. ED/UCC VISIT TRACKING (12 MO.) 09/15/2022 22:31 [facility] [place] TYPE: Emergency COMPLAINT: - CANT KEEP LIQUIDS CANT TAKE MEDICATION 07/24/2022 15:49 [facility] [place] TYPE: Emergency COMPLAINT: - DIZZINESS DIAGNOSES: - Allergy status to sulfonamides - Hormone replacement therapy - Hypertensive chronic kidney disease with stage 1 through stage 4 chronic kidney disease, or unspecified chronic kidney disease - Other buttermilk drier operator (current) drug therapy - Allergy status to narcotic agent - Chronic kidney disease, unspecified - Dizziness and giddiness - Contact with and (suspected) exposure to COVID-19 - Dehydration - 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, unspecified portion - Type 2 diabetes mellitus with diabetic chronic kidney disease 06/24/2022 08:27 [facility] [place] TYPE: Emergency COMPLAINT: - DIZZY, WEAK DIAGNOSES: - Pure hypercholesterolemia, unspecified - Weakness - Other buttermilk drier operator (current) drug therapy - Contact with and (suspected) exposure to COVID-19 - Type 2 diabetes mellitus without complications - Unspecified atrial fibrillation - Allergy status to narcotic agent - Essential (primary) hypertension - Gout, unspecified - Allergy status to sulfonamides 03/27/2022 10:32 [facility] [place] TYPE: Emergency COMPLAINT: - HEART ISSUE DIAGNOSES: - Essential (primary) hypertension - Localized edema - Personal history of pulmonary embolism - termination clerk (current) use of anticoagulants - Type 2 diabetes mellitus without complications - Allergy status to sulfonamides - Unspecified atrial fibrillation - half-way (current) use of oral hypoglycemic drugs - Allergy status to narcotic agent - Other buttermilk drier operator (current) drug therapy - Syncope and collapse - Contact with and (suspected) exposure to COVID-19 11/14/2021 11:11 [facility] [place] TYPE: Emergency COMPLAINT: - DIZZINESS, NAUSEA, SOB, UNABLE TO WALK FAR INPATIENT VISIT TRACKING (12 MO.) 11/14/2021 14:04 [facility] [place] TYPE: Medical Surgical COMPLAINT: - COVID CAITLYN DIAGNOSES: - Other specified postprocedural states - Type 2 diabetes mellitus without complications - Acute kidney failure, unspecified - Acute kidney failure, unspecified - Allergy status to narcotic agent - Carcinoid syndrome - Gout, unspecified - Allergy status to sulfonamides - Acquired absence of other specified parts of digestive tract - Unspecified atrial fibrillation - termination clerk (current) use of anticoagulants - Acquired absence of both cervix and uterus - Hyperlipidemia, unspecified - COVID-19 - Other buttermilk drier operator (current) drug therapy - Acquired absence of both cervix and uterus - Personal history of pulmonary embolism - Hypomagnesemia - Personal history of pulmonary embolism - Hypothyroidism, unspecified - Dehydration - Carcinoid syndrome - Other specified postprocedural states - half-way (current) use of oral hypoglycemic drugs - Allergy status to sulfonamides - half-way (current) use of aspirin - Hypothyroidism, unspecified - Acquired absence of other specified parts of digestive tract - Essential (primary) hypertension - Hyperlipidemia, unspecified - Allergy status to narcotic agent - Essential (primary) hypertension - Other [facility] (current[facility] drug therapy - Type 2 diabetes mellitus without complications - half-way (current) use of oral hypoglycemic drugs - half-way (current) use of aspirin - Dehydration - Hypomagnesemia - Gout, unspecified - Personal history of other endocrine, nutritional and metabolic disease - half-way (current) use of anticoagulants - Unspecified atrial fibrillation [id number]
[2022-09-15] MEDS ORDERED: TIMOLOL MALEATE5 M2 OU (23:26)
[2022-09-16] MEDS ORDERED: PACERONE100 MG PO (14:42)
--- NOTE | 2022-09-17 06:50 | EKG ---
[facility] [address] [place], [place] [address] Signed Atrial fibrillation Cannot rule out Anterior infarct (cited on or before 24-JUL-2022) Abnormal ECG When compared with ECG of 24-JUL-2022 16:30, No significant change was found Confirmed by DANITZA LEDBETTER MD ([id number]) on 09/17/2022 6:50:32 AM Electronically Signed By: DANITZA LEDBETTER MD 09/17/22 0650 PATIENT NAME: CLOVER MARTINEZ Electrocardiogram DATE OF : 41 PHYSICIAN: DANITZA LEDBETTER MD REPORT #: [id number] REPORT IS CONFIDENTIAL AND NOT TO BE RELEASED WITHOUT AUTHORIZATION
[2022-09-17] MEDS ORDERED: ECONAZOLE NITRA30 GM TOP (11:38)
[2022-09-17] MEDS ORDERED: TRIAMCINOLONE A15 G1 TOP (11:38)
[2022-09-17] MEDS ORDERED: ALPHAGAN P5 M1 OU (11:39)
== END 2022-09-20 15:20 | disposition home or self-care (01) | DRG 193 ==
LOC: ED 22:29 → MS 09-16 00:55
PROVIDERS: ADMIT Internal Medicine; ATTEND Internal Medicine
DX: J10.1 Influenza due to other identified influenza virus with other respiratory manifestations (principal); I50.23 Acute on chronic systolic (congestive) heart failure; J96.01 Acute respiratory failure with hypoxia; N17.9 Acute kidney failure, unspecified; C78.7 Secondary malignant neoplasm of liver and intrahepatic bile duct; I13.0 Hypertensive heart and chronic kidney disease with heart failure and stage 1 through stage 4 chronic kidney disease, or unspecified chronic kidney disease; Z20.822 Contact with and (suspected) exposure to COVID-19; M10.9 Gout, unspecified; E87.6 Hypokalemia; N18.32 Chronic kidney disease, stage 3b; I48.0 Paroxysmal atrial fibrillation; E78.00 Pure hypercholesterolemia, unspecified; E03.9 Hypothyroidism, unspecified; H40.9 Unspecified glaucoma; E11.22 Type 2 diabetes mellitus with diabetic chronic kidney disease; Z86.711 Personal history of pulmonary embolism; Z98.891 History of uterine scar from previous surgery; Z90.710 Acquired absence of both cervix and uterus; Z98.890 Other specified postprocedural states; Z90.49 Acquired absence of other specified parts of digestive tract; Z88.2 Allergy status to sulfonamides; Z88.5 Allergy status to narcotic agent; Z79.01 Long term (current) use of anticoagulants; Z79.84 Long term (current) use of oral hypoglycemic drugs; Z79.899 Other long term (current) drug therapy
CPT/HCPCS: 36415; 71045; 71046; 80048; 80053; 81003; 83036; 83735; 83880; 84484; 85025; 87502; 93005; 93010; 94640; 94761; 94762; 96374; 96375; 99285-25; A9270; C9803; J1815; J1940; J2405; J3475; J3480; J7060; J7121; U0003

== ENCOUNTER 2022-12-12 11:07 | Emergency (ER) | payer MEDICARE, OTHER ==
[~2022-12-12] VITALS: Ht 157.5 cm; Wt 84.8 kg
[~2022-12-12 11:07] MED LIST changes: +ECONAZOLE NITRA30 GM TOP; +PACERONE100 MG PO; +TRIAMCINOLONE A15 G1 TOP
--- OUTSIDE RECORDS SUMMARY | 2022-12-12 11:17 | XMS ---
PreManage Notification: CLOVER MARTINEZ Security Nurse'S Companion Events No recent Security Events currently on file CRITERIA MET - Group Notification CARE PROVIDERS JARRETT HICKS [facility] 01/10/2020-Current PHONE: Unknown CAN LUU [facility] Current PHONE: [phone] Zainab has no Care Guidelines for this patient. [place] VISIT COUNT (12 MO.) Brown Quiñonez TOTAL 5 NOTE: Visits indicate total known visits. 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, unspecified portion - Type 2 diabetes mellitus with diabetic chronic kidney disease - Allergy status to sulfonamides - Hormone replacement therapy - Hypertensive chronic kidney disease with stage 1 through stage 4 chronic kidney disease, or unspecified chronic kidney disease - Other continuous churn buttermaker (current) drug therapy - Allergy status to narcotic agent - Chronic kidney disease, unspecified - Dizziness and giddiness 06/24/2022 08:27 [facility] [place] TYPE: Emergency COMPLAINT: - DIZZY, WEAK DIAGNOSES: - Allergy status to narcotic agent - Essential (primary) hypertension - Gout, unspecified - Allergy status to sulfonamides - Pure hypercholesterolemia, unspecified - Weakness - Other continuous churn buttermaker (current) drug therapy - Contact with and (suspected) exposure to COVID-19 - Type 2 diabetes mellitus without complications - Unspecified atrial fibrillation 03/27/2022 10:32 [facility] [place] TYPE: Emergency COMPLAINT: - HEART ISSUE DIAGNOSES: - long-term (current) use of oral hypoglycemic drugs - Allergy status to narcotic agent - Other residential (current) drug therapy - Syncope and collapse - Contact with and (suspected) exposure to COVID-19 - Essential (primary) hypertension - Localized edema - Personal history of pulmonary embolism - supervisor intermediates (current) use of anticoagulants - Type 2 diabetes mellitus without complications - Allergy status to sulfonamides - Unspecified atrial fibrillation INPATIENT VISIT TRACKING (12 MO.) 09/16/2022 00:[address] [facility] [place] TYPE: Medical Surgical COMPLAINT: - CHF EXACERBATION, INFLUENZA A DIAGNOSES: - Allergy status to sulfonamides - Other continuous churn buttermaker (current) drug therapy - Allergy status to narcotic agent - Acute kidney failure, unspecified - Acute on chronic systolic (congestive) heart failure - Secondary malignant neoplasm of liver and intrahepatic bile duct - Secondary malignant neoplasm of liver and intrahepatic bile duct - Acquired absence of both cervix and uterus - Chronic kidney disease, stage 3b - Acute on chronic systolic (congestive) heart failure - Contact with and (suspected) exposure to COVID-19 - Acquired absence of other specified parts of digestive tract - Gout, unspecified - Hypertensive heart and chronic kidney disease with heart failure and stage 1 through stage 4 chronic kidney disease, or unspecified chronic kidney disease - History of uterine scar from previous surgery - Allergy status to sulfonamides - Other specified postprocedural states - Acute respiratory failure with hypoxia - History of uterine scar from previous surgery - Type 2 diabetes mellitus with diabetic chronic kidney disease - Acute kidney failure, unspecified - Acute respiratory failure with hypoxia - Allergy status to narcotic agent - Pure hypercholesterolemia, unspecified - Other continuous churn buttermaker (current) drug therapy - Unspecified glaucoma - Chronic kidney disease, stage 3b - Pure hypercholesterolemia, unspecified - Acquired absence of other specified parts of digestive tract - supervisor intermediates (current) use of anticoagulants - Hypothyroidism, unspecified - Personal history of pulmonary embolism - Paroxysmal atrial fibrillation - Personal history of pulmonary embolism - supervisor intermediates (current) use of oral hypoglycemic drugs - Contact with and (suspected) exposure to COVID-19 - Other specified postprocedural states - supervisor intermediates (current) use of oral hypoglycemic drugs - Hypertensive 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
[2022-12-12] MEDS ORDERED: OXYCODONE HCL5 MG PO (15:17)
[2022-12-13] MEDS ORDERED: HYDROXYZINE HCL10 MG PO (12:25)
[2022-12-13] MEDS ORDERED: FUROSEMIDE20 MG PO (12:25)
== END 2022-12-12 15:52 | disposition home or self-care (01) ==
LOC: ED 11:07
DX: R10.11 Right upper quadrant pain (principal); E86.0 Dehydration; Z20.822 Contact with and (suspected) exposure to COVID-19; E11.9 Type 2 diabetes mellitus without complications; I10 Essential (primary) hypertension; M10.9 Gout, unspecified; E78.00 Pure hypercholesterolemia, unspecified; I48.91 Unspecified atrial fibrillation; Z88.2 Allergy status to sulfonamides; Z88.5 Allergy status to narcotic agent; Z79.899 Other long term (current) drug therapy
CPT/HCPCS: 36415; 51701; 71045; 72125; 74176; 80053; 81003; 83690; 84484; 85025; 87502; 99284-25; C9803; J2405; J7030; U0003

== ENCOUNTER 2023-02-19 12:49 | Observation (INO) | payer MEDICARE, OTHER ==
[~2023-02-19] VITALS: Ht 157.5 cm; Wt 84.0 kg
[~2023-02-19 12:49] MED LIST changes: +HYDROXYZINE HCL10 MG PO; +OXYCODONE HCL5 MG PO
--- OUTSIDE RECORDS SUMMARY | 2023-02-19 12:52 | XMS ---
PreManage Notification: CLOVER MARTINEZ Security Field Party Manager Events No recent Security Events currently on file CRITERIA MET - Group Notification CARE PROVIDERS JARRETT HICKS [facility] 01/10/2020-Current PHONE: Unknown CAN LUU [facility] Current PHONE: [phone] Zainab has no Care Guidelines for this patient. [place] VISIT COUNT (12 MO.) Flaquita Quiñonez TOTAL 7 NOTE: Visits indicate total known visits. ED/UCC VISIT TRACKING (12 MO.) 02/19/2023 12:50 [facility] [place] TYPE: Emergency COMPLAINT: - BACK/ABD PAIN 12/12/2022 16:08 [facility] [place] TYPE: Emergency COMPLAINT: - POSS STROKE 12/12/2022 11:08 [facility] [place] TYPE: Emergency COMPLAINT: - POSS STROKE DIAGNOSES: - Allergy status to narcotic agent - Allergy status to sulfonamides - Contact with and (suspected) exposure to COVID-19 - Dehydration - Essential (primary) hypertension - Gout, unspecified - Other ferry terminal 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 - Pure hypercholesterolemia, unspecified - Right upper quadrant pain - Type 2 diabetes mellitus without complications - Unspecified atrial fibrillation - Weakness 09/15/2022 22:31 [facility] [place] TYPE: Emergency COMPLAINT: - CANT KEEP LIQUIDS CANT TAKE MEDICATION 07/24/2022 15:49 [facility] [place] TYPE: Emergency COMPLAINT: - DIZZINESS DIAGNOSES: - Allergy status to narcotic agent - Allergy status to sulfonamides - 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, unspecified portion - Chronic kidney disease, unspecified - Contact with and (suspected) exposure to COVID-19 - Dehydration - Dizziness and giddiness - Hormone replacement therapy - Hypertensive chronic kidney disease with stage 1 through stage 4 chronic kidney disease, or unspecified chronic kidney disease - Other custodial (current) drug therapy - Type 2 diabetes mellitus with diabetic chronic kidney disease 06/24/2022 08:27 [facility] [place] TYPE: Emergency COMPLAINT: - DIZZY, WEAK DIAGNOSES: - Allergy status to narcotic agent - Allergy status to sulfonamides - Contact with and (suspected) exposure to COVID-19 - Essential (primary) hypertension - Gout, unspecified - Other custodial (current) drug therapy - Pure hypercholesterolemia, unspecified - Type 2 diabetes mellitus without complications - Unspecified atrial fibrillation - Weakness 03/27/2022 10:32 [facility] [place] TYPE: Emergency COMPLAINT: - HEART ISSUE DIAGNOSES: - Allergy status to narcotic agent - Allergy status to sulfonamides - Contact with and (suspected) exposure to COVID-19 - Essential (primary) hypertension - Localized edema - shelter (current) use of anticoagulants - shelter (current) use of oral hypoglycemic drugs - Other custodial (current) drug therapy - Personal history of pulmonary embolism - Syncope and collapse - Type 2 diabetes mellitus without complications - Unspecified atrial fibrillation INPATIENT VISIT TRACKING (12 MO.) 12/12/2022 18:34 [facility] [place] TYPE: Medical Surgical COMPLAINT: - CVA VS TIA DIAGNOSES: - Acquired absence of other specified parts of digestive tract - Allergy status to narcotic agent - Allergy status to sulfonamides - Essential (primary) hypertension - Facial weakness - Hemiplegia, unspecified affecting left nondominant side - History of uterine scar from previous surgery - Hormone replacement therapy - shelter (current) use of anticoagulants - shelter (current) use of oral hypoglycemic drugs - Other ferry terminal 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 [place] TYPE: Medical Surgical COMPLAINT: - CHF EXACERBATION, INFLUENZA A DIAGNOSES: - Acquired absence of both cervix and uterus - Acquired absence of both cervix and uterus - Acquired absence of other specified parts of digestive tract - Acquired absence of other specified parts of digestive tract - Acute kidney failure, unspecified - Acute kidney failure, unspecified - Acute on chronic systolic (congestive) heart failure - Acute on chronic systolic (congestive) heart failure - Acute respiratory failure with hypoxia - Acute respiratory failure with hypoxia - Allergy status to narcotic agent - Allergy status to narcotic agent - Allergy status to sulfonamides - Allergy status to sulfonamides - Chronic kidney disease, stage 3b - Chronic kidney disease, stage 3b - Contact with and (suspected) exposure to COVID-19 - Contact with and (suspected) exposure to COVID-19 - Gout, unspecified - Gout, unspecified - History of uterine scar from previous surgery - History of uterine scar from previous surgery - Hypertensive heart and chronic kidney disease with heart failure and stage 1 through stage 4 chronic kidney disease, or unspecified chronic kidney disease - Hypertensive heart and chronic kidney disease with heart failure and stage 1 through stage 4 chronic kidney disease, or unspecified chronic kidney disease - Hypokalemia - Hypokalemia - Hypothyroidism, unspecified - Hypothyroidism, unspecified - Influenza due to other identified influenza virus with other respiratory manifestations - keno terminal operator (current) use of anticoagulants - keno terminal operator (current) use of anticoagulants - keno terminal operator (current) use of oral hypoglycemic drugs - keno terminal operator (current) use of oral hypoglycemic drugs - Other custodial (current) drug therapy - Other ferry terminal 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 - Other specified postprocedural states - Other specified postprocedural states - Paroxysmal atrial fibrillation - Paroxysmal atrial fibrillation - Personal history of pulmonary embolism - Personal history of pulmonary embolism - Pure hypercholesterolemia, unspecified - Pure hypercholesterolemia, unspecified - Secondary malignant neoplasm of liver and intrahepatic bile duct - Secondary malignant neoplasm of liver and intrahepatic bile duct - Type 2 diabetes mellitus with diabetic chronic kidney disease - Type 2 diabetes mellitus with diabetic chronic kidney disease - Unspecified glaucoma - Unspecified glaucoma [id number]
--- NOTE | 2023-02-19 21:40 | NUR ---
pt ARRIVED TO MEDUG FLOOR AT THIS TIME FROM THE ER STRETCHER, pt STEADY ON FEET AND TRANSFERRED SELF FROM ED BED TO BATHROOM AND BACK TO BED. VS COLLECTED AND ADMISSION COMPLETE. IV SITE WNL, IV FLUIDS HUNG AND INFUSING DIRECTED. STARTED BY PRIMARY RN MAKAYLA. CALL LIGHT IN REACH AND pt ORIENTED TO POC FOR SHIFT. DAUGHTER STEW IN ROOM AND ALSO PRESENT FOR ADMISSION, PREPARING TO LEAVE FOR THE NIGHT.
[2023-02-19 21:44] VITALS: BP 162/101
--- NOTE | 2023-02-19 23:07 | NUR ---
ASSISTED PT UP TOT BSC. CHANGED HER BRIEF, CLEANED HER SKIN WITH BABY WIPES. ASSISTED BACK TO BED.
--- NOTE | 2023-02-20 00:23 | NUR ---
PT HAS HAD NAUSEA UNRELIEVED BY ZOFRAN. SHE WAS GIVEN COMPAZINE 5 MG SLOW IVP WITH SOME RELIEF. HEHR PAIN IS BACK UP TO 8/10 AND SHE IS NOT ABLE TO TAKE THE PO OXYCODONE. DR VANDA JOSUE BE CALLED FOR IV PAIN MED.
[2023-02-20 01:39] VITALS: BP 121/61
--- NOTE | 2023-02-20 01:50 | NUR ---
PT STATES HER PAIN AND NAUSEA ARE RELIEVED. SHE IS RIGHT SIDE LYING AND COMFORTABLE. TEMPERATURE OF ROOM IS WARN WELL. PT HAS CALL LIGHT IN REACH.
--- NOTE | 2023-02-20 04:50 | NUR ---
CALL LIGHT ANSWERED. SBA TO RESTROOM FOR VOID AND BACK TO BED. pt HOLDING LEFT SIDE, COMPLAINS OF PAIN AND NAUSEA. SITTING UP AT SIDE OF BED WITH EMESIS BAG. PRIMARY RN NOTIFIED AND IN ROOM TO MEDICATE pt.
[2023-02-20 04:52] VITALS: BP 130/67
--- NOTE | 2023-02-20 05:10 | NUR ---
PT NEEDED TO GET UP TO THE BATHROOM. SHE BECAME NAUSEOUS WHEN GETTING UP THEN HER LEFT FLANK PAIN CAME BACK. SHE RATED HER PAIN 7/10. PT HAD DRY HEAVES BUT NO VOMITING. PT WAS MEDICATED WITH COMPAZINE 5 MG SLOW IVP AND 1 MG OF IV MORPHINE. A WARMED PACK WAS PLACED AT HER LEFT FLANK. PT STATES SHE IS STARTING TO FEEL BETTER ALREADY. HER DAUGHTER STEW WAS ABLE TO GO HOME.
--- NOTE | 2023-02-20 07:48 | NUR ---
IN ROOM TO COMPLETE BS. BS TAKEN. PT DECLINED GETTING UP TO CHAIR. PT STATES SHE WILL SIT AT EDGE OF BED FOR MEAL. NO NEEDS AT THIS TIME. CALL LIGHT WITHIN REACH.
--- NOTE | 2023-02-20 08:10 | NUR ---
Spoke with Daniella. She states she alternates between her son and daughters home. States she had excruciating back pain after attempting to lift a flower pot. She denies issues getting in or out of her childrens homes. She states he son helps her up the 3-4 steps, but she does not have an issue. She has a cane and walker, but holds onto the future when walking as she feels it is easier. She states she also has a scooter that belonged to her spouse. She is saving this for her overweight family members. She states she can drive, but does not. She plans on dc to home when cleared medically.
[2023-02-20 09:08] VITALS: BP 115/64
--- NOTE | 2023-02-20 10:21 | NUR ---
Patient in bed resting, alert and oriented x4. Patient reports tolerable pain in left flank, pt states "much better" at this time. IV site patent, fluids infusing per provider order. Patient denies needs at this time. Call light within reach.
--- NOTE | 2023-02-20 11:43 | NUR ---
MED REC COMPLETE
[2023-02-20] MEDS ORDERED: CYCLOBENZAPRINE5 MG PO (12:30)
[2023-02-20] MEDS ORDERED: ACETAMINOPHEN500 MG PO (12:31)
[2023-02-20] MEDS ORDERED: ONDANSETRON ODT4 MG SL (13:03)
== END 2023-02-20 13:24 | disposition home or self-care (01) ==
LOC: ED 12:49 → MS 12:51
PROVIDERS: ADMIT Internal Medicine; ATTEND Internal Medicine
DX: M62.830 Muscle spasm of back (principal); R11.2 Nausea with vomiting, unspecified; E86.0 Dehydration; E83.42 Hypomagnesemia; K86.2 Cyst of pancreas; I48.20 Chronic atrial fibrillation, unspecified; I12.9 Hypertensive chronic kidney disease with stage 1 through stage 4 chronic kidney disease, or unspecified chronic kidney disease; E11.22 Type 2 diabetes mellitus with diabetic chronic kidney disease; N18.30 Chronic kidney disease, stage 3 unspecified; E03.9 Hypothyroidism, unspecified; D3A.00 Benign carcinoid tumor of unspecified site; C78.7 Secondary malignant neoplasm of liver and intrahepatic bile duct; Z88.5 Allergy status to narcotic agent; Z88.2 Allergy status to sulfonamides
CPT/HCPCS: 36415; 74177; 80053; 81003; 82140; 83036; 83690; 83735; 85025; 96365; 96366; 96375; 96376; 99284-25; A9270; G0378; J0780; J1170; J1815; J2270; J2405; J3475; J7030; J7121; Q9967

== ENCOUNTER 2023-02-26 08:45 | Emergency (ER) | payer MEDICARE, OTHER ==
[~2023-02-26] VITALS: Ht 157.5 cm; Wt 83.9 kg
[~2023-02-26 08:45] MED LIST changes: +ACETAMINOPHEN500 MG PO; +CYCLOBENZAPRINE5 MG PO; +ONDANSETRON ODT4 MG SL
--- OUTSIDE RECORDS SUMMARY | 2023-02-26 08:49 | XMS ---
PreManage Notification: CLOVER MARTINEZ Security Developing Machine Operator Events No recent Security Events currently on file CRITERIA MET - Group Notification - [facility] - 2 Visits in 30 Days CARE PROVIDERS JARRETT HICKS [facility] 01/10/2020-Current PHONE: Unknown CAN LUU [facility] Current PHONE: [phone] Zainab has no Care Guidelines for this patient. [place] VISIT COUNT (12 MO.) [address] [place] [address] TOTAL 8 NOTE: Visits indicate total known visits. ED/UCC VISIT TRACKING (12 MO.) 02/26/2023 08:46 [facility] [place] TYPE: Emergency COMPLAINT: - BACK PAIN 02/19/2023 12:50 [facility] [place] TYPE: Emergency [...] (primary) hypertension - Gout, unspecified - Other local intermodal truck driver (current) drug therapy - Pure hypercholesterolemia, unspecified - Right upper quadrant pain - Type 2 diabetes mellitus without complications - Unspecified atrial fibrillation - Weakness 09/15/2022 22:31 [facility] [place] TYPE: Emergency COMPLAINT: - CANT [...] or unspecified chronic kidney disease - Other local intermodal truck driver (current) drug therapy - Type 2 diabetes mellitus with diabetic chronic kidney disease 06/24/2022 08:27 [facility] [place] TYPE: Emergency COMPLAINT: - DIZZY, WEAK DIAGNOSES: - Allergy status to narcotic agent - Allergy status to sulfonamides - Contact with and (suspected) exposure to COVID-19 - Essential (primary) hypertension - Gout, unspecified - Other retirement (current) drug therapy - Pure hypercholesterolemia, unspecified - Type 2 diabetes mellitus without complications - Unspecified atrial fibrillation - Weakness 03/27/2022 10:32 [facility] [place] TYPE: Emergency COMPLAINT: - HEART ISSUE DIAGNOSES: - Allergy status to narcotic agent - Allergy status to sulfonamides - Contact with and (suspected) exposure to COVID-19 - Essential (primary) hypertension - Localized edema - local intermodal truck driver (current) use of anticoagulants - jail (current) use of oral hypoglycemic drugs - Other retirement (current) drug therapy - Personal history of pulmonary embolism - Syncope and collapse - Type 2 diabetes mellitus without complications - Unspecified atrial fibrillation INPATIENT VISIT TRACKING (12 MO.) 02/19/2023 12:51 [facility] [place] TYPE: Observation COMPLAINT: - INTRACTABLE N/V FLANK PAIN DIAGNOSES: - Allergy status to narcotic agent - Allergy status to sulfonamides - Benign carcinoid tumor of unspecified site - Chronic atrial fibrillation, unspecified - Chronic kidney disease, stage 3 unspecified - Cyst of pancreas - Dehydration - Hypertensive chronic kidney disease with stage 1 through stage 4 chronic kidney disease, or unspecified chronic kidney disease - Hypomagnesemia - Hypothyroidism, unspecified - Muscle spasm of back - Nausea with vomiting, unspecified - Secondary malignant neoplasm of liver and intrahepatic bile duct - Type 2 diabetes mellitus with diabetic chronic kidney disease 12/12/2022 18:34 [facility] [place] TYPE: Medical Surgical COMPLAINT: - CVA VS TIA DIAGNOSES: - Acquired absence of other specified parts of digestive tract - Allergy status to narcotic agent - Allergy status to sulfonamides - Essential (primary) hypertension - Facial weakness - Hemiplegia, unspecified affecting left nondominant side - History of uterine scar from previous surgery - Hormone replacement therapy - jail (current) use of anticoagulants - local intermodal truck driver (current) use of oral hypoglycemic drugs - Other retirement (current) 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
[2023-02-26] MEDS ORDERED: DILAUDID2 MG PO (09:18)
[2023-02-26] MEDS ORDERED: LIDODERM1 EACH TOP (09:18)
[2023-02-26] MEDS ORDERED: ONDANSETRON ODT4 MG PO (09:18)
[2023-02-26 09:30] VITALS: BP 132/89
== END 2023-02-26 09:30 | disposition home or self-care (01) ==
LOC: ED 08:45
DX: M54.9 Dorsalgia, unspecified (principal); I12.9 Hypertensive chronic kidney disease with stage 1 through stage 4 chronic kidney disease, or unspecified chronic kidney disease; E11.22 Type 2 diabetes mellitus with diabetic chronic kidney disease; N18.9 Chronic kidney disease, unspecified; I48.91 Unspecified atrial fibrillation; Z79.899 Other long term (current) drug therapy; Z79.01 Long term (current) use of anticoagulants; Z79.84 Long term (current) use of oral hypoglycemic drugs; Z88.2 Allergy status to sulfonamides; Z88.5 Allergy status to narcotic agent
CPT/HCPCS: 99283

== ENCOUNTER 2023-11-21 07:26 | Emergency (ER) | payer MEDICARE, OTHER ==
[~2023-11-21] VITALS: Ht 165.1 cm; Wt 89.6 kg
[~2023-11-21 07:26] MED LIST changes: +DILAUDID2 MG PO; +LIDODERM1 EACH TOP; +ONDANSETRON ODT4 MG PO
--- OUTSIDE RECORDS SUMMARY | 2023-11-21 07:31 | XMS ---
PreManage Notification: CLOVER MARTINEZ Security Equipment Technician Events No recent Security Events currently on file CRITERIA MET - Group Notification - PDMP CARE PROVIDERS JARRETT HICKS [facility] 01/10/2020-Current PHONE: Unknown Zainab has no Care Guidelines for this patient. E.DDaxa VISIT COUNT (12 MO.) 5 [facility] Quiñonez TOTAL 5 NOTE: Visits indicate total known visits. 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
[2023-11-21 07:58] LABS: BASOPHILS 0.9 % (0-2); EOSINOPHILS 2.7 % (0-6); HEMATOCRIT 36.3 % (35.0-50.0); HEMOGLOBIN 11.5 g/dL (12.0-18.0); LYMPHOCYTES 36.7 % (24-44); MCH 24.8 (27-36); MCHC 31.6 g/dl (30-36); MCV 78.4 fl (81-99); MONOCYTES 9.2 % (0-12); NEUTROPHILS 50.5 % (39-80); PLATELET COUNT 215 K/uL (140-440); RBC 4.63 M/ul (4.3-5.7)
[2023-11-21] MEDS ORDERED: LORazepam 2 MG/ML VIAL IV ONE (08:15)
[2023-11-21 08:23] LABS: ALBUMIN 3.2 g/dL (3.4-5.0); ALBUMIN/GLOBULIN RATIO 1.1 (1.1-2.4); ANION GAP 12.1 (7-21); BILIRUBIN, TOTAL 0.5 ng/dL (0.2-1.0); BUN/CREATININE RATIO 12.82 (6.0-28.6); CALCIUM 8.9 mg/dL (8.5-10.1); CREATININE, SERUM 1.56 mg/dL (0.55-1.02); POTASSIUM 4.1 mmol/L (3.5-5.1); PROTEIN, TOTAL 6.1 g/dL (6.4-8.2)
[2023-11-21 08:24] LABS: INFLUENZA B NAA NEGATIVE (NEGATIVE); RESPIRATORY SYNCYTIAL VIR NAA NEGATIVE (NEGATIVE)
[2023-11-21 08:56] LABS: BILIRUBIN, URINE NEGATIVE (negative); BLOOD/HGB, URINE NEGATIVE (Negative); KETONE, URINE NEGATIVE (Negative); LEUK ESTERASE, URINE NEGATIVE (negative); NITRITE, URINE NEGATIVE (negative)
[2023-11-21] MEDS ORDERED: LIDOCAINE 2% VISCOUS 6 ML SYR TOP ONE ×2 (09:30→09:45)
[2023-11-21] MEDS ORDERED: TRAMADOL HCL50 MG PO (11:27)
[2023-11-21 11:55] VITALS: BP 154/92
--- NOTE | 2023-11-21 21:58 | EKG ---
[facility] [address] [place] [address] Signed Atrial fibrillation with slow ventricular response ST \T\ T wave abnormality, consider anterolateral ischemia Abnormal ECG When compared with ECG of 21-NOV-2023 07:36, (Unconfirmed) No significant change was found Confirmed by Rubens Yusuf MD () on 11/21/2023 9:58:07 PM Electronically Signed By: RUBENS YUSUF MD 11/21/23 2158 PATIENT NAME: CLOVER MARTINEZ Electrocardiogram DATE OF : 41 PHYSICIAN: RUBENS YUSUF MD REPORT #: [id number] REPORT IS CONFIDENTIAL AND NOT TO BE RELEASED WITHOUT AUTHORIZATION
== END 2023-11-21 11:55 | disposition home or self-care (01) ==
LOC: ED 07:26
PROVIDERS: Emergency Medicine
DX: R53.1 Weakness (principal); R29.898 Other symptoms and signs involving the musculoskeletal system; Z63.79 Other stressful life events affecting family and household; R20.2 Paresthesia of skin; C7A.00 Malignant carcinoid tumor of unspecified site; R05.9 Cough, unspecified; E11.9 Type 2 diabetes mellitus without complications; I10 Essential (primary) hypertension; M10.9 Gout, unspecified; E78.00 Pure hypercholesterolemia, unspecified; I48.91 Unspecified atrial fibrillation; Z88.2 Allergy status to sulfonamides; Z88.5 Allergy status to narcotic agent; Z79.84 Long term (current) use of oral hypoglycemic drugs; Z79.890 Hormone replacement therapy; Z79.899 Other long term (current) drug therapy
CPT/HCPCS: 36415; 51702; 70450; 71045; 80053; 81003; 83880; 84484; 85025; 87502; 93005; 93010; 99285-25; J2060; U0002

== ENCOUNTER 2024-04-11 13:14 | Emergency (ER) | payer MEDICARE, OTHER ==
[~2024-04-11] VITALS: Ht 157.5 cm; Wt 87.5 kg
--- OUTSIDE RECORDS SUMMARY | 2024-04-11 13:15 | XMS ---
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 E.Ragini VISIT COUNT (12 MO.) 3 RODGER Quiñonez TOTAL 3 NOTE: Visits indicate total known visits. ED/UCC VISIT TRACKING (12 MO.) 04/11/2024 13:14 [facility] [place] TYPE: Emergency COMPLAINT: - WEAKNESS 11/30/2023 06:04 [facility] [place] TYPE: Emergency COMPLAINT: - FALL DIAGNOSES: - Allergy status to narcotic agent - Allergy status to sulfonamides - Cervicalgia - Contusion of scalp, initial encounter - Essential (primary) hypertension - Fall on same level from slipping, tripping and stumbling with subsequent striking against furniture, initial encounter - Hormone replacement therapy - superintendent terminal (current) use of oral hypoglycemic drugs - Other terminal gauger 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 - Pain in left shoulder - Strain of muscle, fascia and tendon at neck level, initial encounter - Type 2 diabetes mellitus without complications 11/21/2023 07:28 [facility] [place] TYPE: Emergency COMPLAINT: - L FACIAL NUMBNESS, L ARM, BACK PAIN, HEADACHE DIAGNOSES: - Allergy status to narcotic agent - Allergy status to sulfonamides - Cough, unspecified - Essential (primary) hypertension - Gout, unspecified - Hormone replacement therapy - superintendent terminal (current) use of oral hypoglycemic drugs - Malignant carcinoid tumor of unspecified site - Other snf (current) drug therapy - Other stressful life events affecting family and household - Other symptoms and signs involving the musculoskeletal system - Paresthesia of skin - Pure hypercholesterolemia, unspecified - Type 2 diabetes mellitus without complications - Unspecified atrial fibrillation - Weakness INPATIENT VISIT TRACKING (12 MO.) No inpatient visits to display in this time frame [id number]
[2024-04-11] MEDS ORDERED: ondansetron HCL 4 MG/2 ML VIAL IV ONE (13:30)
[2024-04-11] MEDS ORDERED: SODIUM CHLORIDE 0.9% 1,000 ML IV PRN (13:30)
[2024-04-11] MEDS ORDERED: ACETAMINOPHEN 500 MG TAB PO ONE (13:30)
[2024-04-11 13:51] LABS: BASOPHILS 0.5 % (0-2); EOSINOPHILS 0.3 % (0-6); HEMATOCRIT 38.4 % (35.0-50.0); HEMOGLOBIN 12.3 g/dL (12.0-18.0); LYMPHOCYTES 11.7 % (24-44); MCH 23.6 (27-36); MCV 73.8 fl (81-99); MONOCYTES 10.7 % (0-12); NEUTROPHILS 76.8 % (39-80); PLATELET COUNT 194 K/uL (140-440); RBC 5.21 M/ul (4.3-5.7); RDW 16.9 (10.5-15.0)
[2024-04-11] MEDS ORDERED: TIZANIDINE HCL4 M1 PO (13:57)
[2024-04-11] MEDS ORDERED: TOBRAMYCIN5 ML OPTH (13:57)
[2024-04-11] MEDS ORDERED: ELIQUIS5 MG PO (13:58)
[2024-04-11 14:00] LABS: ALBUMIN 3.6 g/dL (3.4-5.0); ALBUMIN/GLOBULIN RATIO 1.06 (1.1-2.4); ANION GAP 16.2 (7-21); BILIRUBIN, TOTAL 1.1 ng/dL (0.2-1.0); BUN/CREATININE RATIO 7.63 (6.0-28.6); CALCIUM 8.6 mg/dL (8.5-10.1); CREATININE, SERUM 1.44 mg/dL (0.55-1.02); POTASSIUM 4.2 mmol/L (3.5-5.1)
[2024-04-11 14:09] LABS: BILIRUBIN, URINE POSITIVE (negative); BLOOD/HGB, URINE NEGATIVE (Negative); KETONE, URINE TRACE (Negative); LEUK ESTERASE, URINE NEGATIVE (negative); NITRITE, URINE NEGATIVE (negative); PH, URINE 5.5 (5-7)
[2024-04-11 14:17] LABS: BACTERIA, URINE NONE SEEN /hpf (negative); CASTS, URINE NONE SEEN \\lpf; COLLECTION TYPE, URINE CLEAN CATCH; CRYSTALS, URINE NONE SEEN (0-1+); EPITHELIAL CELLS, URINE SQUAMOUS 2+ /lpf (0-1+); RED BLOOD CELLS, URINE 0-1 /hpf (0-5); REFLEX CULTURE, URINE No (No)
[2024-04-11 14:22] LABS: INFLUENZA B NAA NEGATIVE (NEGATIVE); RESPIRATORY SYNCYTIAL VIR NAA NEGATIVE (NEGATIVE)
[2024-04-11] MEDS ORDERED: ONDANSETRON ODT8 MG PO (15:55)
[2024-04-11 16:02] VITALS: BP 127/80
--- NOTE | 2024-04-12 16:06 | EKG ---
[facility] [address] [facility] [address] [place] [address] Signed Atrial fibrillation Nonspecific ST and T wave abnormality Abnormal ECG When compared with ECG of 21-NOV-2023 07:37, Vent. rate has increased BY 32 BPM Nonspecific T wave abnormality no longer evident in Inferior leads T wave inversion no longer evident in Anterior leads Confirmed by CATA THAKKAR MD ([id number]) on 04/12/2024 4:06:32 PM Electronically Signed By: CATA THAKKAR 04/12/24 1606 PATIENT NAME: CLOVER MARTINEZ ANGELO Electrocardiogram DATE OF : 41 PHYSICIAN: CATA THAKKAR REPORT #: [id number] REPORT IS CONFIDENTIAL AND NOT TO BE RELEASED WITHOUT AUTHORIZATION
== END 2024-04-11 16:13 | disposition home or self-care (01) ==
LOC: ED 13:14
PROVIDERS: Emergency Medicine
DX: U07.1 COVID-19 (principal); I10 Essential (primary) hypertension; E11.9 Type 2 diabetes mellitus without complications; I48.91 Unspecified atrial fibrillation; Z88.2 Allergy status to sulfonamides; Z79.01 Long term (current) use of anticoagulants; Z79.84 Long term (current) use of oral hypoglycemic drugs; Z79.890 Hormone replacement therapy; Z79.899 Other long term (current) drug therapy
CPT/HCPCS: 36415; 70450; 71045; 74177; 80053; 81001; 83690; 85025; 87502; 93005; 93010; 96361; 99285-25; A9270; J2405; J7030; Q9967; U0002

== ENCOUNTER 2024-04-15 15:44 | Emergency (ER) | payer MEDICARE, OTHER ==
[~2024-04-15] VITALS: Ht 157.5 cm; Wt 86.6 kg
[~2024-04-15 15:44] MED LIST changes: +ONDANSETRON ODT8 MG PO; +TIZANIDINE HCL4 M1 PO; +TOBRAMYCIN5 ML OPTH
--- OUTSIDE RECORDS SUMMARY | 2024-04-15 15:46 | XMS ---
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 [place] VISIT COUNT (12 MO.) 4 [facility] TOTAL 4 NOTE: Visits indicate total known visits. ED/UCC VISIT TRACKING (12 MO.) 04/15/2024 15:45 [facility] [place] TYPE: Emergency COMPLAINT: - COUGH 04/11/2024 13:14 [facility] [place] TYPE: Emergency COMPLAINT: - WEAKNESS DIAGNOSES: - Allergy status to sulfonamides - COVID-19 - Essential (primary) hypertension - Hormone replacement therapy - [facility] (current) use of anticoagulants - terminal carman (current) use of oral hypoglycemic drugs - Other intermodal customer service (current) drug therapy - Type 2 diabetes mellitus without complications - Unspecified atrial fibrillation - Weakness 11/30/2023 06:04 [facility] [place] TYPE: Emergency COMPLAINT: - FALL DIAGNOSES: - Allergy status to narcotic agent - Allergy status to sulfonamides - Cervicalgia - Contusion of scalp, initial encounter - Essential (primary) hypertension - Fall on same level from slipping, tripping and stumbling with subsequent striking against furniture, initial encounter - Hormone replacement therapy - terminal carman (current) use of oral hypoglycemic drugs - Other intermodal customer service (current) drug therapy - Pain in left [...] Gout, unspecified - Hormone replacement therapy - terminal carman (current) use of oral hypoglycemic drugs - Malignant carcinoid tumor of unspecified site - Other correction (current) drug therapy - Other stressful life events affecting family and household - Other symptoms and signs involving the musculoskeletal system - Paresthesia of skin - Pure hypercholesterolemia, unspecified - Type 2 diabetes mellitus without complications - Unspecified atrial fibrillation - Weakness INPATIENT VISIT TRACKING (12 MO.) No inpatient visits to display in this time frame [id number]
[2024-04-15] MEDS ORDERED: LEVOFLOXACIN750 MG PO (16:02)
[2024-04-15 17:33] LABS: BASOPHILS 0.7 % (0-2); EOSINOPHILS 1.2 % (0-6); HEMATOCRIT 35.6 % (35.0-50.0); HEMOGLOBIN 11.5 g/dL (12.0-18.0); LYMPHOCYTES 33.1 % (24-44); MCH 23.9 (27-36); MCHC 32.4 g/dl (30-36); MCV 73.7 fl (81-99); MONOCYTES 11.6 % (0-12); NEUTROPHILS 53.4 % (39-80); PLATELET COUNT 199 K/uL (140-440); RBC 4.83 M/ul (4.3-5.7); RDW 16.9 (10.5-15.0)
[2024-04-15 17:49] LABS: BILIRUBIN, URINE POSITIVE (negative); BLOOD/HGB, URINE NEGATIVE (Negative); KETONE, URINE TRACE (Negative); LEUK ESTERASE, URINE SMALL (negative); NITRITE, URINE NEGATIVE (negative)
[2024-04-15 17:49] LABS: ALBUMIN 3.1 g/dL (3.4-5.0); ALBUMIN/GLOBULIN RATIO 0.97 (1.1-2.4); ANION GAP 15.4 (7-21); BILIRUBIN, TOTAL 0.4 ng/dL (0.2-1.0); BUN/CREATININE RATIO 12.8 (6.0-28.6); CALCIUM 8.6 mg/dL (8.5-10.1); CREATININE, SERUM 1.64 mg/dL (0.55-1.02); POTASSIUM 3.4 mmol/L (3.5-5.1); PROTEIN, TOTAL 6.3 g/dL (6.4-8.2)
[2024-04-15 17:58] LABS: BACTERIA, URINE RARE /hpf (negative); CASTS, URINE NONE SEEN \\lpf; CRYSTALS, URINE NONE SEEN (0-1+); RED BLOOD CELLS, URINE 0-1 /hpf (0-5); WHITE BLOOD CELLS, URINE 21-40 /HPF (0-5)
[2024-04-15 17:59] LABS: COLLECTION TYPE, URINE CLEAN CATCH; REFLEX CULTURE, URINE No (No)
[2024-04-15 18:45] VITALS: BP 148/97
== END 2024-04-15 18:45 | disposition home or self-care (01) ==
LOC: ED 15:44
PROVIDERS: Emergency Medicine
DX: U07.1 COVID-19 (principal); E11.9 Type 2 diabetes mellitus without complications; I10 Essential (primary) hypertension; E78.00 Pure hypercholesterolemia, unspecified; I48.91 Unspecified atrial fibrillation; Z79.899 Other long term (current) drug therapy; Z88.2 Allergy status to sulfonamides; Z88.5 Allergy status to narcotic agent
CPT/HCPCS: 36415; 71045; 80053; 81001; 83605; 85025; 87502; 99285-25; U0002

== ENCOUNTER 2024-05-03 17:57 | Emergency (ER) | payer MEDICARE, OTHER ==
[~2024-05-03] VITALS: Ht 157.5 cm; Wt 90.6 kg
[~2024-05-03 17:57] MED LIST changes: +LEVOFLOXACIN750 MG PO
--- OUTSIDE RECORDS SUMMARY | 2024-05-03 18:00 | XMS ---
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 [place] VISIT COUNT (12 MO[address] 5 [facility] TOTAL 5 NOTE: Visits indicate total known visits. ED/UCC VISIT TRACKING (12 MO.) 05/03/2024 18:00 [facility] [place] TYPE: Emergency COMPLAINT: - FALLS/ABDOMINAL PAIN 04/15/2024 15:45 [facility] [place] TYPE: Emergency COMPLAINT: - COUGH DIAGNOSES: - Allergy status to narcotic agent - Allergy status to sulfonamides - COVID-19 - Essential (primary) hypertension - Other correction (current) drug therapy - Pure hypercholesterolemia, unspecified - Type 2 diabetes mellitus without complications - Unspecified atrial fibrillation - Weakness 04/11/2024 13:14 [facility] [place] TYPE: Emergency COMPLAINT: - WEAKNESS DIAGNOSES: - Allergy status to sulfonamides - COVID-19 - Essential (primary) hypertension - Hormone replacement therapy - local intermodal truck driver (current) use of anticoagulants - local intermodal [...] initial encounter - Hormone replacement therapy - group home (current) use of oral hypoglycemic drugs - Other remote computer terminal operator (current) drug therapy - Pain in left [...] Gout, unspecified - Hormone replacement therapy - group home (current) use of oral hypoglycemic drugs - Malignant carcinoid tumor of unspecified site - Other remote computer terminal operator (current) drug therapy - Other stressful life events affecting family and household - Other symptoms and signs involving the musculoskeletal system - Paresthesia of skin - Pure hypercholesterolemia, unspecified - Type 2 diabetes mellitus without complications - Unspecified atrial fibrillation - Weakness INPATIENT VISIT TRACKING (12 MO.) No inpatient visits to display in this time frame [id number]
[2024-05-03 18:25] LABS: BASOPHILS 0.3 % (0-2); EOSINOPHILS 1.6 % (0-6); HEMATOCRIT 37.2 % (35.0-50.0); HEMOGLOBIN 11.8 g/dL (12.0-18.0); LYMPHOCYTES 19.9 % (24-44); MCH 23.6 (27-36); MCHC 31.7 g/dl (30-36); MCV 74.6 fl (81-99); MONOCYTES 8.4 % (0-12); NEUTROPHILS 69.8 % (39-80); PLATELET COUNT 222 K/uL (140-440); RBC 4.98 M/ul (4.3-5.7); RDW 17.4 (10.5-15.0)
[2024-05-03 18:39] LABS: ALBUMIN 3.5 g/dL (3.4-5.0); ALBUMIN/GLOBULIN RATIO 1.17 (1.1-2.4); ALCOHOL, MEDICAL <3 ng/dL (<3); ALKALINE PHOSPHATASE 91 U/L (46-116); ALT (SGPT) 13 U/L (14-59); ANION GAP 12.9 (7-21); AST (SGOT) 11 U/L (15-37); BILIRUBIN, TOTAL 0.5 ng/dL (0.2-1.0); BUN/CREATININE RATIO 11.39 (6.0-28.6); CALCIUM 8.7 mg/dL (8.5-10.1); CARBON DIOXIDE 22 mmol/L (21-32); CHLORIDE 104 mmol/L (98-107); CREATININE, SERUM 1.58 mg/dL (0.55-1.02); GLOMERULAR FILTRATION RATE,EST 33 mL/min (>60); POTASSIUM 3.9 mmol/L (3.5-5.1); PROTEIN, TOTAL 6.5 g/dL (6.4-8.2); UREA NITROGEN 18 mg/dL (7-18)
[2024-05-03] MEDS ORDERED: TRADJENTA5 MG PO (19:14)
[2024-05-03] MEDS ORDERED: hydrALAZINE HCL 25 MG TAB PO ONE (19:15)
[2024-05-03 19:31] LABS: BILIRUBIN, URINE NEGATIVE (negative); BLOOD/HGB, URINE NEGATIVE (Negative); KETONE, URINE NEGATIVE (Negative); LEUK ESTERASE, URINE TRACE (negative); NITRITE, URINE NEGATIVE (negative)
[2024-05-03 19:40] LABS: BACTERIA, URINE NONE SEEN /hpf (negative); COLLECTION TYPE, URINE CLEAN CATCH; CRYSTALS, URINE NONE SEEN (0-1+); RED BLOOD CELLS, URINE 0-1 /hpf (0-5); REFLEX CULTURE, URINE No (No)
[2024-05-03 19:41] LABS: CASTS, URINE NONE SEEN \\lpf
[2024-05-03 19:57] LABS: AMPHETAMINES, URINE NEGATIVE (NEGATIVE); BARBITURATES, URINE NEGATIVE (NEGATIVE); BENZODIAZEPINE, URINE NEGATIVE (NEGATIVE); BUPRENORPHINE, URINE NEGATIVE (NEGATIVE); CANNABINOID, URINE NEGATIVE (NEGATIVE); COCAINE, URINE NEGATIVE (NEGATIVE); ECSTASY, URINE NEGATIVE (NEGATIVE); FENTANYL, URINE NEGATIVE (NEGATIVE); METHADONE, URINE NEGATIVE (NEGATIVE); OPIATES, URINE NEGATIVE (NEGATIVE); OXYCODONE, URINE NEGATIVE (NEGATIVE); PHENCYCLIDINE, URINE NEGATIVE (NEGATIVE)
[2024-05-03] MEDS ORDERED: TRAMADOL HCL 50 MG TAB PO ONE (21:30)
[2024-05-03] MEDS ORDERED: hydrALAZINE HCL 20 MG/ML VIAL IV ONE (21:30)
[2024-05-03] MEDS ORDERED: TRAMADOL HCL 50 MG HOME.PACK PO ONE (23:15)
[2024-05-03 23:45] VITALS: BP 166/101
== END 2024-05-03 23:46 | disposition home or self-care (01) ==
LOC: ED 17:57
PROVIDERS: Emergency Medicine
DX: S32.592A Other specified fracture of left pubis, initial encounter for closed fracture (principal); S62.102A Fracture of unspecified carpal bone, left wrist, initial encounter for closed fracture; M50.322 Other cervical disc degeneration at C5-C6 level; E11.9 Type 2 diabetes mellitus without complications; I10 Essential (primary) hypertension; W18.30XA Fall on same level, unspecified, initial encounter; Z88.2 Allergy status to sulfonamides; Z88.5 Allergy status to narcotic agent; Z79.899 Other long term (current) drug therapy; Z79.01 Long term (current) use of anticoagulants; Z79.890 Hormone replacement therapy
CPT/HCPCS: 36415; 70450; 71260; 72125; 73090; 73130; 74177; 80053; 80307; 81001; 83690; 85025; 99284-25; A9270; G0480; J0360; Q9967

== ENCOUNTER 2024-11-27 10:59 | Emergency (ER) | payer MEDICARE, OTHER ==
[~2024-11-27] VITALS: Ht 162.6 cm; Wt 78.9 kg
[~2024-11-27 10:59] MED LIST changes: +PERCOCET 5-3251 EACH PO; +TRADJENTA5 MG PO
--- OUTSIDE RECORDS SUMMARY | 2024-11-27 11:02 | XMS ---
PreManage Notification: CLOVER MARTINEZ Security Insole Reinforcer Events No recent Security Events currently on file CRITERIA MET - Group Notification CARE PROVIDERS JARRETT HICKS Family [facility] 01/10/2020-Current PHONE: Unknown Zainab has no Care Guidelines for this patient. [place] VISIT COUNT (12 MO.) 6 RODGER Quiñonez TOTAL 6 NOTE: Visits indicate total known visits. ED/UCC VISIT TRACKING (12 MO.) 11/27/2024 11:00 [facility] [place] TYPE: Emergency COMPLAINT: - COLD SYMPTOMS 06/21/2024 08:45 [facility] [place] TYPE: Emergency COMPLAINT: - ABDOMINAL PAIN DIAGNOSES: - Allergy status to narcotic agent - Allergy status to sulfonamides - Chronic kidney disease, unspecified - Cyst of pancreas - Diverticulosis of large intestine without perforation or abscess without bleeding - Gout, unspecified - Hormone replacement therapy - Hypertensive chronic kidney disease with stage 1 through stage 4 chronic kidney disease, or unspecified chronic kidney disease - nursing home (current) use of anticoagulants - tank terminal gauger (current) use of oral hypoglycemic drugs - Other chest pain - Other [facility] (current) drug therapy - Personal history of malignant neoplasm, unspecified - Personal history of pulmonary embolism - Pure hypercholesterolemia, unspecified - Type 2 diabetes mellitus with diabetic chronic kidney disease - Unspecified atrial fibrillation - Upper abdominal pain, unspecified 05/03/2024 18:00 [facility] [place] TYPE: Emergency COMPLAINT: - FALLS/ABDOMINAL PAIN DIAGNOSES: - Allergy status to narcotic agent - Allergy status to sulfonamides - Cervicalgia - Essential (primary) hypertension - Fall on same level, unspecified, initial encounter - Fracture of unspecified carpal bone, left wrist, initial encounter for closed fracture - Hormone replacement therapy - tank terminal gauger (current) use of anticoagulants - Other cervical disc degeneration at C5-C6 level - Other long haul truck driver (current) drug therapy - Other specified fracture of left pubis, initial encounter for closed fracture - Type 2 diabetes mellitus without complications 04/15/2024 15:45 [facility] [place] TYPE: Emergency COMPLAINT: - COUGH DIAGNOSES: - Allergy status to narcotic agent - Allergy status to sulfonamides - COVID-19 - Essential (primary) hypertension - Other [facility] (current) drug therapy - Pure hypercholesterolemia, unspecified - Type 2 diabetes mellitus without complications - Unspecified atrial fibrillation - Weakness 04/11/2024 13:14 [facility] [place] TYPE: Emergency COMPLAINT: - WEAKNESS DIAGNOSES: - Allergy status to sulfonamides - COVID-19 - Essential (primary) hypertension - Hormone replacement therapy - nursing home (current) use of anticoagulants - nursing home (current) use of oral hypoglycemic drugs - Other long haul truck driver (current) drug therapy - Type [...] initial encounter - Hormone replacement therapy - tank terminal gauger (current) use of oral hypoglycemic drugs - Other long haul truck driver (current) drug therapy - Pain in left shoulder - Strain of muscle, fascia and tendon at neck level, initial encounter - Type 2 diabetes mellitus without complications INPATIENT VISIT TRACKING (12 MO.) No inpatient visits to display in this time frame [id number]
[2024-11-27] MEDS ORDERED: TRAMADOL HCL50 MG PO (11:12)
[2024-11-27] MEDS ORDERED: FERROUS SULFAT324 MG PO (11:12)
[2024-11-27] MEDS ORDERED: ALBUTEROL/IPRATROPIUM 3 ML NEB INH ONE (11:15)
[2024-11-27 11:38] LABS: BASOPHILS 0.5 % (0-2); EOSINOPHILS 0.8 % (0-6); LYMPHOCYTES 10.6 % (24-44); MCHC 33.3 g/dl (30-36); MCV 81.1 fl (81-99); NEUTROPHILS 80.1 % (39-80); PLATELET COUNT 174 K/uL (140-440); RBC 5.18 M/ul (4.3-5.7); RDW 16.5 (10.5-15.0)
[2024-11-27 11:59] LABS: ALBUMIN 3.5 g/dL (3.4-5.0); ALBUMIN/GLOBULIN RATIO 1.03 (1.1-2.4); ANION GAP 14.6 (7-21); BILIRUBIN, TOTAL 1.9 mg/dL (0.2-1.0); BUN/CREATININE RATIO 8.78 (6.0-28.6); CALCIUM 9.3 mg/dL (8.5-10.1); CREATININE, SERUM 1.48 mg/dL (0.55-1.02); POTASSIUM 3.6 mmol/L (3.5-5.1); PROTEIN, TOTAL 6.9 g/dL (6.4-8.2)
[2024-11-27] MEDS ORDERED: ONDANSETRON ODT8 MG PO (12:50)
[2024-11-27] MEDS ORDERED: VENTOLIN HFA18 GM INH (12:50)
[2024-11-27 13:00] VITALS: BP 151/93
[2024-11-27] MEDS ORDERED: ALBUTEROL SULFATE 8 GM HOME.PACK INH ONE (13:00)
[2024-11-27] MEDS ORDERED: INHALER, ASSIST DEVICES 1 EACH SPACER MISC ONE (13:00)
--- NOTE | 2024-11-28 18:49 | EKG ---
[facility] [address] [place] [address] Signed Atrial fibrillation Nonspecific ST and T wave abnormality Abnormal ECG When compared with ECG of 21-JUN-2024 0:900, No significant change was found Confirmed by Rubens Yusuf MD () on 11/28/2024 6:49:15 PM Electronically Signed By: RUBENS YUSUF MD 11/28/24 1849 PATIENT NAME: MICHELLECLOVER ANGELO Electrocardiogram DATE OF : 41 PHYSICIAN: RUBENS YUSUF MD REPORT #: [id number] REPORT IS CONFIDENTIAL AND NOT TO BE RELEASED WITHOUT AUTHORIZATION
== END 2024-11-27 13:01 | disposition home or self-care (01) ==
LOC: ED 10:59
PROVIDERS: Emergency Medicine
DX: J20.8 Acute bronchitis due to other specified organisms (principal); E11.9 Type 2 diabetes mellitus without complications; I10 Essential (primary) hypertension; M10.9 Gout, unspecified; E78.00 Pure hypercholesterolemia, unspecified; I48.91 Unspecified atrial fibrillation; Z86.711 Personal history of pulmonary embolism; Z88.2 Allergy status to sulfonamides; Z88.5 Allergy status to narcotic agent; Z79.84 Long term (current) use of oral hypoglycemic drugs; Z79.01 Long term (current) use of anticoagulants; Z79.890 Hormone replacement therapy; Z79.899 Other long term (current) drug therapy
CPT/HCPCS: 36415; 71045; 80053; 83880; 84484; 85025; 93005; 93010; 99285-25

== ENCOUNTER 2024-12-02 09:41 | Emergency (ER) | payer MEDICARE, OTHER ==
[~2024-12-02] VITALS: Ht 162.6 cm; Wt 86.6 kg
[~2024-12-02 09:41] MED LIST changes: +FERROUS SULFAT324 MG PO; +VENTOLIN HFA18 GM INH
--- OUTSIDE RECORDS SUMMARY | 2024-12-02 09:46 | XMS ---
PreManage Notification: CLOVER MARTINEZ Security Clinic Md Associate Events No recent Security Events currently on file CRITERIA MET - Group Notification - [facility] - 2 Visits in 30 Days CARE PROVIDERS JARRETT HICKS Family [facility] 01/10/2020-Current PHONE: Unknown Zainab has no Care Guidelines for this patient. [place] VISIT COUNT (12 MO.) 6 [facility] TOTAL 6 NOTE: Visits indicate total known visits. ED/UCC VISIT TRACKING (12 MO.) 12/02/2024 09:41 [facility] [place] TYPE: Emergency COMPLAINT: - COUGH 11/27/2024 11:00 [facility] [place] TYPE: Emergency COMPLAINT: - COLD SYMPTOMS DIAGNOSES: - Acute bronchitis due to other specified organisms - Allergy status to narcotic agent - Allergy status to sulfonamides - Essential (primary) hypertension - Gout, unspecified - Hormone replacement therapy - regional intermodal truck driver (current) use of anticoagulants - prison (current) use of oral hypoglycemic drugs - Other watermelon harvesting 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 - Other specified symptoms and signs involving the circulatory and respiratory systems - Personal history of pulmonary embolism - Pure hypercholesterolemia, unspecified - Type 2 diabetes mellitus without complications - Unspecified atrial fibrillation 06/21/2024 08:45 [facility] [place] TYPE: Emergency [...] disease, or unspecified chronic kidney disease - prison (current) use of anticoagulants - prison (current) use of oral hypoglycemic drugs - Other chest pain - Other watermelon harvesting 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 - Personal history of [...] closed fracture - Hormone replacement therapy - prison (current) use of anticoagulants - Other cervical disc degeneration at C5-C6 level - Other alf (current) drug therapy - Other specified fracture of left pubis, initial encounter for closed fracture - Type 2 diabetes mellitus without complications 04/15/2024 15:45 [facility] [place] TYPE: Emergency COMPLAINT: - COUGH DIAGNOSES: - Allergy status to narcotic agent - Allergy status to sulfonamides - COVID-19 - Essential (primary) hypertension - Other watermelon harvesting 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 - Pure hypercholesterolemia, unspecified - Type 2 diabetes mellitus without complications - Unspecified atrial fibrillation - Weakness 04/11/2024 13:14 [facility] [place] TYPE: Emergency COMPLAINT: - WEAKNESS DIAGNOSES: - Allergy status to sulfonamides - COVID-19 - Essential (primary) hypertension - Hormone replacement therapy - prison (current) use of anticoagulants - regional intermodal truck driver (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
[2024-12-02] MEDS ORDERED: ALBUTEROL/IPRATROPIUM 3 ML NEB INH ONE (11:15)
[2024-12-02] MEDS ORDERED: CEFTRIAXONE SODIUM 1 GM in SODIUM CHLORIDE 0.9% 100 ML IV ONE (11:15)
[2024-12-02] MEDS ORDERED: CEFTRIAXONE SODIUM 1 GM VIAL IV ONE (11:23)
[2024-12-02 11:33] LABS: BASOPHILS 0.5 % (0-2); EOSINOPHILS 1.1 % (0-6); HEMATOCRIT 41.4 % (35.0-50.0); HEMOGLOBIN 13.6 g/dL (12.0-18.0); LYMPHOCYTES 16.4 % (24-44); MCH 26.7 (27-36); MCHC 32.9 g/dl (30-36); MCV 81.2 fl (81-99); PLATELET COUNT 238 K/uL (140-440); RBC 5.11 M/ul (4.3-5.7); RDW 16.1 (10.5-15.0)
[2024-12-02 11:56] LABS: ALBUMIN 3.5 g/dL (3.4-5.0); ALBUMIN/GLOBULIN RATIO 0.97 (1.1-2.4); BILIRUBIN, TOTAL 0.7 mg/dL (0.2-1.0); BUN/CREATININE RATIO 12.75 (6.0-28.6); CALCIUM 9.5 mg/dL (8.5-10.1); CREATININE, SERUM 1.49 mg/dL (0.55-1.02); PROTEIN, TOTAL 7.1 g/dL (6.4-8.2)
[2024-12-02] MEDS ORDERED: ZITHROMAX250 MG PO (12:14)
[2024-12-02 13:16] VITALS: BP 138/94
== END 2024-12-02 13:16 | disposition home or self-care (01) ==
LOC: ED 09:41
PROVIDERS: Emergency Medicine
DX: J18.9 Pneumonia, unspecified organism (principal); E11.9 Type 2 diabetes mellitus without complications; I10 Essential (primary) hypertension; I48.91 Unspecified atrial fibrillation; Z88.2 Allergy status to sulfonamides; Z88.5 Allergy status to narcotic agent; Z79.899 Other long term (current) drug therapy; Z79.01 Long term (current) use of anticoagulants; Z79.84 Long term (current) use of oral hypoglycemic drugs
CPT/HCPCS: 36415; 71045; 80053; 85025; 94640; 94667; 96374; 99284-25

== ENCOUNTER 2025-01-17 14:13 | Emergency (ER) | payer MEDICARE, OTHER ==
[~2025-01-17] VITALS: Ht 157.5 cm; Wt 81.2 kg
--- OUTSIDE RECORDS SUMMARY | 2025-01-17 14:19 | XMS ---
PreManage Notification: CLOVER MARTINEZ Security Bone Grinder Events No recent Security Events currently on file CRITERIA MET - Group Notification CARE PROVIDERS JARRETT HICKS Family [facility] 01/10/2020-Current PHONE: Unknown Zainab has no Care Guidelines for this patient. [place] VISIT COUNT (12 MO.) 7 RODGER Quiñonez TOTAL 7 NOTE: Visits indicate total known visits. ED/UCC VISIT TRACKING (12 MO.) 01/17/2025 14:13 [facility] [place] TYPE: Emergency COMPLAINT: - CHEST PAIN 12/02/2024 09:41 [facility] [place] TYPE: Emergency COMPLAINT: - COUGH DIAGNOSES: - Allergy status to narcotic agent - Allergy status to sulfonamides - Cough, unspecified - Essential (primary) hypertension - equipment operator intermodal yard (current) use of anticoagulants - equipment operator intermodal yard (current) use of oral hypoglycemic drugs - Other equipment operator intermodal yard (current) drug therapy - Pneumonia, unspecified organism - Type 2 diabetes mellitus without complications - Unspecified atrial fibrillation 11/27/2024 11:00 [facility] [place] TYPE: Emergency COMPLAINT: - COLD SYMPTOMS DIAGNOSES: - Acute bronchitis due to other specified organisms - Allergy status to narcotic agent - Allergy status to sulfonamides - Essential (primary) hypertension - Gout, unspecified - Hormone replacement therapy - equipment operator intermodal yard (current) use of anticoagulants - penitentiary (current) use of oral hypoglycemic drugs - Other equipment operator intermodal yard (current) drug therapy - Other specified symptoms [...] disease, or unspecified chronic kidney disease - penitentiary (current) use of anticoagulants - equipment operator intermodal yard (current) use of oral hypoglycemic drugs - Other chest pain - Other senior living (current) drug therapy - Personal history of [...] closed fracture - Hormone replacement therapy - penitentiary (current) use of anticoagulants - Other cervical disc degeneration at C5-C6 level - Other senior living (current) drug therapy - Other specified fracture of left pubis, initial encounter for closed fracture - Type 2 diabetes mellitus without complications 04/15/2024 15:45 [facility] [place] TYPE: Emergency COMPLAINT: - COUGH DIAGNOSES: - Allergy status to narcotic agent - Allergy status to sulfonamides - COVID-19 - Essential (primary) hypertension - Other equipment operator intermodal yard (current) drug therapy - Pure hypercholesterolemia, unspecified - Type 2 diabetes mellitus without complications - Unspecified atrial fibrillation - Weakness 04/11/2024 13:14 [facility] [place] TYPE: Emergency COMPLAINT: - WEAKNESS DIAGNOSES: - Allergy status to sulfonamides - COVID-19 - Essential (primary) hypertension - Hormone replacement therapy - equipment operator intermodal yard (current) use of anticoagulants - equipment operator intermodal yard (current) use of oral hypoglycemic drugs - Other senior living (current) drug therapy - Type 2 diabetes mellitus without complications - Unspecified atrial fibrillation - Weakness INPATIENT VISIT TRACKING (12 MO.) No inpatient visits to display in this time frame [id number]
[2025-01-17 14:30] LABS: BASOPHILS 0.4 % (0-2); EOSINOPHILS 1.5 % (0-6); HEMATOCRIT 42.1 % (35.0-50.0); LYMPHOCYTES 20.2 % (24-44); MCH 26.6 (27-36); MCHC 33.2 g/dl (30-36); MCV 80.2 fl (81-99); MONOCYTES 8.8 % (0-12); NEUTROPHILS 69.1 % (39-80); PLATELET COUNT 212 K/uL (140-440); RBC 5.25 M/ul (4.3-5.7); RDW 15.6 (10.5-15.0)
[2025-01-17] MEDS ORDERED: ASPIRIN 81 MG CHEW PO ONE (14:30)
[2025-01-17] MEDS ORDERED: SODIUM CHLORIDE 0.9% 1,000 ML IV ONE (14:30)
[2025-01-17] MEDS ORDERED: HYDROmorphone HCL 1 MG/ML SYR IV ONE ×2 (14:30→17:00)
[2025-01-17] MEDS ORDERED: ondansetron HCL 4 MG/2 ML VIAL IV PRN (14:30)
[2025-01-17] MEDS ORDERED: NITROGLYCERIN 0.4 MG SUBL SL PRN (14:30)
[2025-01-17 14:47] LABS: ALBUMIN 3.8 g/dL (3.4-5.0); ALBUMIN/GLOBULIN RATIO 1.12 (1.1-2.4); ANION GAP 13.1 (7-21); BILIRUBIN, TOTAL 1.1 mg/dL (0.2-1.0); BUN/CREATININE RATIO 11.67 (6.0-28.6); CALCIUM 9.3 mg/dL (8.5-10.1); CREATININE, SERUM 1.37 mg/dL (0.55-1.02); MAGNESIUM 1.4 mg/dL (1.8-2.4); POTASSIUM 4.1 mmol/L (3.5-5.1); PROTEIN, TOTAL 7.2 g/dL (6.4-8.2)
[2025-01-17] MEDS ORDERED: MAGNESIUM SULFATE 2 GM/50 ML BAG IV ONE (16:30)
[2025-01-17] MEDS ORDERED: OXYCODONE HCL5 MG PO (16:36)
--- NOTE | 2025-01-17 17:51 | EKG ---
[facility] [address] [place] [address] Signed Atrial fibrillation Nonspecific ST and T wave abnormality Abnormal ECG When compared with ECG of 27-NOV-2024 11:37, No significant change was found Confirmed by Khoi Manuel DO ([id number]) on 01/17/2025 5:51:06 PM Electronically Signed By: KHOI MANUEL DO 01/17/251750 PATIENT NAME: MICHELLECLOVER ANGELO Electrocardiogram DATE OF : 41 PHYSICIAN: KHOI MANUEL DO REPORT #: [id number] REPORT IS CONFIDENTIAL AND NOT TO BE RELEASED WITHOUT AUTHORIZATION
[2025-01-17 20:25] VITALS: BP 139/87
[2025-01-17] MEDS ORDERED: OXYCODONE/ACETAMINOPHEN 1 TAB HOME.PACK PO ONE (20:30)
== END 2025-01-17 20:25 | disposition home or self-care (01) ==
LOC: ED 14:13
PROVIDERS: Emergency Medicine
DX: R07.9 Chest pain, unspecified (principal); C7B.00 Secondary carcinoid tumors, unspecified site; C7A.029 Malignant carcinoid tumor of the large intestine, unspecified portion; G89.29 Other chronic pain; E11.9 Type 2 diabetes mellitus without complications; I10 Essential (primary) hypertension; E78.00 Pure hypercholesterolemia, unspecified; I48.91 Unspecified atrial fibrillation; Z90.49 Acquired absence of other specified parts of digestive tract; Z86.711 Personal history of pulmonary embolism; Z88.2 Allergy status to sulfonamides; Z88.5 Allergy status to narcotic agent; Z79.890 Hormone replacement therapy; Z79.01 Long term (current) use of anticoagulants; Z79.84 Long term (current) use of oral hypoglycemic drugs; Z79.899 Other long term (current) drug therapy
CPT/HCPCS: 36415; 71260; 80053; 83735; 84484; 85025; 93005; 93010; 99285-25; A9270; J1171; J2405; J3475; J7030; Q9967